=== PATIENT | male | born 1945 | race Caucasian/White ===

== ENCOUNTER → 2021-06-21 13:05 | Outpatient (POV) | payer SELFPAY | PROVIDERS: Visit Provider Audiologist | DX: Z00.00 Encounter for general adult medical examination without abnormal findings (principal) ==

== ENCOUNTER → 2021-07-02 15:48 | Outpatient (CLI) | payer MEDICARE, BC, SELFPAY ==
--- NOTE | 2021-07-02 15:54 | XR_ITS ---
PROCEDURE: XR KUB CLINICAL INDICATION: back pain COMPARISON: No exams were available for comparison FINDINGS: The report delayed waiting on a repeat exam with less the abdomen to cover the entire abdomen. As of this date that exam is not been performed. There are faint flecks of hyperdensity noted in the left upper quadrant and pelvic region and could be due to ingested material. At least 3 of these overlie the left kidney. Therefore, small stones cannot be excluded. There are degenerative changes of the thoracic spine. A suture line is present to the right L3 and L4. No definite ureteral calculi. IMPRESSION: Probable artifact overlying the left kidney versus small stones otherwise negative. Dictated by: Jerry Downey MD 07/15/2021 10:26 Jerry Downey MD in [place] 07/15/2021 10:26
== END ==
PROVIDERS: PCP Family Medicine; Visit Provider Urology
DX: M54.9 Dorsalgia, unspecified (principal)
CPT/HCPCS: 74018

== ENCOUNTER → 2021-07-13 09:42 | Outpatient (CLI) | payer MEDICARE, BC, SELFPAY ==
--- NOTE | 2021-07-13 09:43 | CA_ITS ---
APPROVED REPORT EXAM: Comprehensive 2D, Doppler, and color-flow Echocardiogram Sandwich Board Carrier: Wendy Ragland RDCS Ht: 5 ft 10 in Wt: 204lbs BSA: 2.10 BP: 117/72 mmHg Indications: MV REPAIR,AF,HTN,HLP,CHRONIC CHF,DEFINITY TO R/O THROMBUS 2D Dimensions LVOT 2.40 cm (M/F) 1.5-2.5 LA Volume 169.60 mL LA Volume Index 80.76 mL/m2 (M/F) 16-34 M-Mode Dimensions RVDd 2.03 cm (0.9-2.6) LA Diam 7.00 cm (1.9-4.0) LVDd 5.49 cm (3.5-5.7) Ao Diam 3.95 cm (2.0-3.7) LVDs 4.19 cm (3.5-5.7) IVSd 0.69 cm (0.6-1.1) PWd 0.61 cm (0.6-1.1) EF (Teich) 46.80% FS 23.70% EDV (Teich) 146.80 mL TAPSE 2.34 (<1.7) ESV (Teich) 78.10 mL Tricuspid Valve TR P. Velocity 244.00 cm/s RAP Estimate 10.00 mmHg RVSP 33.80 mmHg Left Ventricle Left atrium is markedly enlarged, left ventricle is normal size, mild concentric left ventricular hypertrophy, visually estimated ejection fraction 50% with no regional wall motion abnormality, diastolic parameters are inconclusive, there is no left ventricular thrombus seen, Definity contrast was utilized to delineate the endocardial surfaces. Right Ventricle Right atrium and right ventricle are qualitatively mildly enlarged with normal contractility. Aortic Valve Aortic valve is minimally thickened and fibrosed, there is no aortic stenosis, there is trace aortic insufficiency. Mitral Valve Status post mitral valve repair, mitral valve leaflets are minimally thickened, there is no mitral inflow obstruction, there is moderate to severe mitral regurgitation. Tricuspid Valve Tricuspid valve leaflets are minimally thickened, there is mild tricuspid regurgitation, calculated right ventricular systolic pressure is 33 mmHg. Pulmonic Valve Pulmonic valve is poorly visualized. Great Vessels Aortic root is normal size. Inferior vena cava is poorly visualized. Pericardium No significant pericardial effusion noted. Conclusion 1. Markedly enlarged left atrium, normal left ventricular size, mild concentric left ventricular hypertrophy, visually estimated ejection fraction 50%, there is no regional wall motion abnormality, there is no left ventricular thrombus seen. Diastolic parameters are inconclusive. 2. Status post mitral valve repair without significant mitral inflow obstruction, there is moderate to severe mitral regurgitation. 3. Mild tricuspid regurgitation, calculated right ventricular systolic pressure is 33 mmHg. 4. No significant pericardial effusion noted. 5. Inferior vena cava is poorly visualized. Electronically signed by : Omar Virk MD 07/13/2021 12:59:45
--- NOTE | 2021-07-13 09:43 | CA_ITS ---
APPROVED REPORT Improvement Specialist: Payal Gil RVT Laterality: Bilateral Study Quality: Good Indications: ANEUDY Risk Factors Hypertension: Hyperlipidemia Doppler Spectral Velocity Analysis ECA (R) 78.10/11.80 cm/s ECA (L) 149.70/23.50 cm/s dICA (R) 78.10/33.10 cm/s dICA (L) 58.80/28.90 cm/s Christiano (R) 83.40/39.60 cm/s Christiano (L) 67.40/28.90 cm/s pICA (R) 85.50/36.40 cm/s pICA (L) 42.80/24.60 cm/s dCCA (R) 115.50/22.50 cm/s dCCA (L) 67.40/24.60 cm/s pCCA (R) 80.20/18.20 cm/s pCCA (L) 78.10/23.50 cm/s Vert (R) 43.80/21.40 cm/s Vert (L) 32.10/13.90 cm/s ICA/CCA 0.74 ICA/CCA 1.00 Findings Study suggests less than 20% stenosis of the right internal cartoid artery. Study suggests less than 20% stenosis of the left internal cartoid artery. Antegrade flow seen bilateral vertebral arteries. Conclusion Study suggests less than 20% stenosis of the right internal cartoid artery. Study suggests less than 20% stenosis of the left internal cartoid artery. Antegrade flow seen bilateral vertebral arteries. Electronically signed by : Jerry Downey MD 07/13/2021 15:45:53
[2021-07-13 12:01] LABS: NT Pro Brain Natriuretic Pep. 520 pg/mL (0-125)
== END ==
PROVIDERS: PCP Family Medicine; Visit Provider Internal Medicine Cardiovascular Disease
DX: E78.5 Hyperlipidemia, unspecified (principal); I48.20 Chronic atrial fibrillation, unspecified; I50.9 Heart failure, unspecified; R06.83 Snoring; R09.89 Other specified symptoms and signs involving the circulatory and respiratory systems; R40.0 Somnolence; R53.83 Other fatigue; R60.0 Localized edema; Z86.79 Personal history of other diseases of the circulatory system; Z98.890 Other specified postprocedural states; R06.02 Shortness of breath; I11.0 Hypertensive heart disease with heart failure
CPT/HCPCS: 36415; 83880; 93306; 93880; Q9957

== ENCOUNTER → 2021-08-02 11:11 | Outpatient (CLI) | payer MEDICARE, BC, SELFPAY ==
[2021-08-02 12:37] LABS: Anion Gap 12.2 mEq/L (5-15); Blood Urea Nitrogen 33 mg/dl (9-20); Calcium 9.6 mg/dl (8.4-10.2); Carbon Dioxide 30 mmol/L (22.0-30.0); Chloride 103 mmol/L (98-107); Estimated Glomerular Filt Rate 59 ml/min (>60); GFR (African American) 72 ML/MIN (>60); Glucose 111 mg/dl (74-100); Potassium 5.2 mmoL/L (3.5-5.1); Sodium 140 mmol/L (136-145)
== END ==
PROVIDERS: Visit Provider Internal Medicine Cardiovascular Disease
DX: E78.5 Hyperlipidemia, unspecified (principal); I10 Essential (primary) hypertension; I48.20 Chronic atrial fibrillation, unspecified; I50.9 Heart failure, unspecified; R06.83 Snoring; R09.89 Other specified symptoms and signs involving the circulatory and respiratory systems; R40.0 Somnolence; R53.83 Other fatigue; R60.0 Localized edema; Z86.79 Personal history of other diseases of the circulatory system; Z98.890 Other specified postprocedural states
CPT/HCPCS: 36415; 80048

== ENCOUNTER → 2021-08-09 10:11 | Outpatient (CLI) | payer MEDICARE, BC, SELFPAY ==
[2021-08-09 12:37] LABS: Chloride 102 mmol/L (98-107); Sodium 140 mmol/L (136-145)
[2021-08-09 12:40] LABS: Blood Urea Nitrogen 22 mg/dl (9-20); Estimated Glomerular Filt Rate 54 ml/min (>60); GFR (African American) 65 ML/MIN (>60)
[2021-08-09 12:41] LABS: Calcium 9.3 mg/dl (8.4-10.2); Carbon Dioxide 31 mmol/L (22.0-30.0); Glucose 110 mg/dl (74-100)
== END ==
PROVIDERS: Physician Assistant; Visit Provider Internal Medicine Cardiovascular Disease
DX: E78.5 Hyperlipidemia, unspecified (principal); G47.9 Sleep disorder, unspecified; I10 Essential (primary) hypertension; I34.0 Nonrheumatic mitral (valve) insufficiency; I48.20 Chronic atrial fibrillation, unspecified; I50.9 Heart failure, unspecified; R06.83 Snoring; R09.89 Other specified symptoms and signs involving the circulatory and respiratory systems; R40.0 Somnolence; R60.0 Localized edema; R94.31 Abnormal electrocardiogram [ECG] [EKG]; Z86.79 Personal history of other diseases of the circulatory system; Z98.890 Other specified postprocedural states
CPT/HCPCS: 36415; 80048

== ENCOUNTER → 2021-08-21 13:12 | Outpatient (CLI) | payer MEDICARE, BC, SELFPAY | PROVIDERS: PCP Family Medicine; Visit Provider Internal Medicine Cardiovascular Disease | DX: G47.30 Sleep apnea, unspecified (principal); R06.83 Snoring; R53.83 Other fatigue; R40.0 Somnolence | CPT/HCPCS: G0399 ==

== ENCOUNTER → 2022-05-31 11:45 | Outpatient (CLI) | payer MEDICARE, BC, SELFPAY ==
[2022-05-31 16:46] LABS: NT Pro Brain Natriuretic Pep. 481 pg/mL (0-450)
[2022-05-31 16:54] LABS: Chloride 102 mmol/L (98-107); Sodium 141 mmol/L (136-145)
[2022-05-31 16:55] LABS: Potassium 4.6 mmoL/L (3.5-5.1)
[2022-05-31 16:57] LABS: Blood Urea Nitrogen 25 mg/dl (9-20); Estimated Glomerular Filt Rate 49 ml/min (>60); GFR (African American) 60 ML/MIN (>60)
[2022-05-31 16:58] LABS: Anion Gap 10.6 mEq/L (5-15); Calcium 10.2 mg/dl (8.4-10.2); Carbon Dioxide 33 mmol/L (22.0-30.0); Glucose 105 mg/dl (74-100)
== END ==
PROVIDERS: PCP Family Medicine; Visit Provider Internal Medicine Cardiovascular Disease
DX: E78.2 Mixed hyperlipidemia (principal); G47.33 Obstructive sleep apnea (adult) (pediatric); I34.0 Nonrheumatic mitral (valve) insufficiency; I48.20 Chronic atrial fibrillation, unspecified; I50.9 Heart failure, unspecified; R60.9 Edema, unspecified; Z98.890 Other specified postprocedural states; I11.0 Hypertensive heart disease with heart failure
CPT/HCPCS: 36415; 80048; 83880

== ENCOUNTER → 2022-06-14 14:15 | Outpatient (CLI) | payer MEDICARE, BC, SELFPAY ==
--- NOTE | 2022-06-14 14:21 | CA_ITS ---
APPROVED REPORT EXAM: Comprehensive 2D, Doppler, and color-flow Echocardiogram Production Technologist: Candida Malhotra CRT Ht: 5 ft 10 in Wt: 216lbs BSA: 2.16 BP: 124/80 mmHg Indications: Congestive Heart Failure, Shortness of Breath, Atrial Fibrillation, Diabetes, Peripheral Edema, Hyperlipidemia, Hypertension/HDD, Mitral Valve Ring 2D Dimensions LVOT 2.03 cm (M/F) 1.5-2.5 LA Volume 159.20 mL LA Volume Index 73.70 mL/m2 (M/F) 16-34 M-Mode Dimensions RVDd 2.90 cm (0.9-2.6) LA Diam 6.13 cm (1.9-4.0) LVDd 4.15 cm (3.5-5.7) Ao Diam 4.68 cm (2.0-3.7) LVDs 2.97 cm (3.5-5.7) IVSd 1.32 cm (0.6-1.1) PWd 0.89 cm (0.6-1.1) EF (Teich) 55.20% FS 28.40% EDV (Teich) 76.40 mL TAPSE 1.82 (<1.7) ESV (Teich) 34.20 mL LV Diastology E Decel Time 217.00 (160-240 msec) E/A Ratio 4.78 MED A' 4.20 cm/s LAT E' 11.10 (<10 cm/sec) LAT A' 4.10 cm/s E/LAT E' Ratio 12.05 (>14) Aortic Valve AO Peak GR. 5.30 mmHg AO VTI 27.86 (18-25 cm) Mitral Valve MV E Max Ambrose. 134.00 (40-130 cm/s) MV A Velocity 28.00 (40-130 cm/s) E/A Ratio 4.78 MV Decel. Time 217.00 (160-240 ms) MV PHT 63.00 ms Pulmonary Valve PV Peak Velocity 135.00 (50-150 cm/s) Tricuspid Valve TR P. Velocity 278.00 cm/s RAP Estimate 10.00 mmHg RVSP 40.90 mmHg Left Ventricle Left atrium is markedly enlarged, left ventricle is normal size mild concentric left ventricular hypertrophy, estimated ejection fraction 50% with no regional wall motion abnormality, diastolic parameters are inconclusive. Right Ventricle Right atrium and right ventricle are mildly enlarged with normal contractility. Aortic Valve Aortic valve is thickened and calcified without aortic stenosis or aortic insufficiency. Mitral Valve Mitral valve has mitral annular ring, mitral inflow velocity is not indicated for significant mitral inflow obstruction, there is moderate mitral regurgitation. Tricuspid Valve Tricuspid valve is grossly normal, there is mild tricuspid regurgitation, tricuspid regurgitation jet velocity is inadequate for calculation of the right ventricular systolic pressure. Pulmonic Valve Pulmonic valve is poorly visualized. Great Vessels Aortic root is normal size. Inferior vena cava is poorly visualized. Pericardium No significant pericardial effusion noted. Conclusion 1. Markedly enlarged left atrium, normal left ventricular size, mild concentric left ventricular hypertrophy, estimated ejection fraction 50% with no regional wall motion abnormality, diastolic parameters are inconclusive. 2. Status post mitral valve ring repair, there is no significant mitral inflow obstruction, there is moderate mitral regurgitation. 3. Mild tricuspid regurgitation. 4. Mildly enlarged right atrium and right ventricle with normal contractility. 5. No significant pericardial effusion noted. 6. Inferior vena cava is poorly visualized. Electronically signed by : Omar Virk MD 06/16/2022 08:24:47
== END ==
PROVIDERS: PCP Family Medicine; Visit Provider Internal Medicine Cardiovascular Disease
DX: E78.2 Mixed hyperlipidemia (principal); G47.33 Obstructive sleep apnea (adult) (pediatric); I10 Essential (primary) hypertension; I34.0 Nonrheumatic mitral (valve) insufficiency; I48.20 Chronic atrial fibrillation, unspecified; R60.9 Edema, unspecified; Z98.890 Other specified postprocedural states; I50.89 Other heart failure
CPT/HCPCS: 93306

== ENCOUNTER → 2022-06-25 08:52 | Outpatient (CLI) | payer MEDICARE, BC, SELFPAY ==
[2022-06-25 09:35] LABS: Basophils # 0.1 K/mm3 (0-0.2); Basophils % 0.7 % (0.1-2.0); Eosinophils # 0.2 K/mm3 (0.0-0.4); Eosinophils % 3.1 % (0.1-12.0); Hematocrit 46.8 % (42.0-52.0); Lymphocytes # 0.5 K/mm3 (0.7-4.5); Lymphocytes % 7.9 % (10-50); Mean Corpuscular Hemoglobin 31.6 pg (27.0-31.2); Mean Corpuscular Volume 98.4 fl (80-94); Mean Platelet Volume 8.8 fl (7.4-10.4); Monocytes # 0.6 K/mm3 (0.1-1.0); Monocytes % 8.2 % (1.7-9.3); Neutrophils # 5.4 K/mm3 (1.8-7.8); Neutrophils % 80.2 % (37.0-80.0); Platelet Count 120 K/mm3 (142-424); Red Blood Count 4.76 M/mm3 (4.60-6.20); Red Cell Distribution Width 14.2 % (11.5-17.5); White Blood Count 6.7 K/mm3 (4.8-10.8)
[2022-06-25 09:49] LABS: Chloride 95 mmol/L (98-107); Potassium 3.8 mmoL/L (3.5-5.1); Sodium 136 mmol/L (136-145)
[2022-06-25 09:52] LABS: Blood Urea Nitrogen 29 mg/dl (9-20); Estimated Glomerular Filt Rate 42 ml/min (>60); GFR (African American) 51 ML/MIN (>60)
[2022-06-25 09:53] LABS: Anion Gap 14.8 mEq/L (5-15); Carbon Dioxide 30 mmol/L (22.0-30.0); Glucose 130 mg/dl (74-100)
== END ==
PROVIDERS: PCP Family Medicine; Visit Provider Internal Medicine Cardiovascular Disease
DX: E78.2 Mixed hyperlipidemia (principal); I10 Essential (primary) hypertension; I34.0 Nonrheumatic mitral (valve) insufficiency; I48.20 Chronic atrial fibrillation, unspecified; R60.0 Localized edema; R60.9 Edema, unspecified; Z86.79 Personal history of other diseases of the circulatory system; Z98.890 Other specified postprocedural states; Z01.812 Encounter for preprocedural laboratory examination; Z20.822 Contact with and (suspected) exposure to COVID-19
CPT/HCPCS: 36415; 80048; 85025; C9803; U0003; U0005

== ENCOUNTER → 2022-06-26 08:45 | Day surgery (SDC) | payer MEDICARE, BC, SELFPAY ==
[2022-06-26 08:49] VITALS: BMI 30.7
[2022-06-26 09:19] LABS: INR 2.71 (0.9-1.1); Prothrombin Time 27.7 seconds (10.1-12.5)
== END ==
PROVIDERS: PCP Family Medicine; Visit Provider Internal Medicine
DX: Z53.9 Procedure and treatment not carried out, unspecified reason (principal); I27.20 Pulmonary hypertension, unspecified; I27.21 Secondary pulmonary arterial hypertension; E11.9 Type 2 diabetes mellitus without complications; I10 Essential (primary) hypertension; I34.0 Nonrheumatic mitral (valve) insufficiency; I48.20 Chronic atrial fibrillation, unspecified; Z79.01 Long term (current) use of anticoagulants; Z79.84 Long term (current) use of oral hypoglycemic drugs
CPT/HCPCS: 36415; 85610

== ENCOUNTER 2022-06-28 03:16 | Emergency (ER) | payer MEDICARE, BC, SELFPAY ==
[2022-06-28] VITALS (7 sets, daily range): BP systolic 112–127; BP diastolic 73–84; PULSE 78–103; RESP 16–19; TEMP 36.6–37.1; O2SAT 95–98; BMI 30.1
--- NOTE | 2022-06-28 03:24 | ECG_ITS ---
APPROVED REPORT Exam: Resting ECG HR:100 bpm ECG Measurements Heart Rate 100 AXES QRSd 144 QRS -62 QT 366 T -16 QTc 423 Conclusion ATRIAL FIBRILLATION WITH RAPID VENTRICULAR RESPONSE WITH ABERRANT CONDUCTION OR VENTRICULAR PREMATURE COMPLEXES LEFT AXIS DEVIATION [QRS AXIS < -30] RIGHT BUNDLE BRANCH BLOCK [120+ ms QRS DURATION, UPRIGHT V1, 40+ ms S IN I/aVL/V4/V5/V6] ABNORMAL ECG UNCONFIRMED REPORT Electronically signed by : Haroon Nair MD 06/28/2022 13:50:24
--- NOTE | 2022-06-28 03:35 | CT_ITS ---
PROCEDURE INFORMATION: Exam: CT Head Without Contrast Exam date and time: 06/28/2022 3:38 AM Age: 76 years old Clinical indication: Pain; Headache; Additional info: Headache x 3 days, overall not feeling well TECHNIQUE: Imaging protocol: Computed tomography of the head without contrast. Radiation optimization: All CT scans at this facility use at least one of these dose optimization techniques: automated exposure control; mA and/or kV adjustment per patient size (includes targeted exams where dose is matched to clinical indication); or iterative reconstruction. COMPARISON: US CA CAROTID DUPLEX BI 07/13/2021 10:37 AM FINDINGS: Brain: There is layering subdural blood on the left, overlying the left convexity best seen at the left frontal lobe measuring approximately 3 mm in thickness. Age related atrophic changes in the brain. There is moderate diffuse heterogeneity of the white matter attenuation, consistent with chronic white matter microvascular ischemic changes. No mass effect or midline shift. No evidence of acute territorial ischemia. Cerebral ventricles: The ventricular system demonstrates mild diffuse compensatory enlargement. Paranasal sinuses: Mucosal thickening in the right maxillary, ethmoid and frontal sinuses. Mastoid air cells: No significant mastoid effusion. Bones/joints: No acute fracture. Soft tissues: No acute findings. IMPRESSION: 1. Subdural hematoma overlying the left convexity measuring about 3 mm in thickness without significant mass effect or midline shift. 2. Other chronic changes as described.
--- NOTE | 2022-06-28 03:37 | XR_ITS ---
PROCEDURE INFORMATION: Exam: XR Chest Exam date and time: 06/28/2022 3:38 AM Age: 76 years old Clinical indication: Other: Headache; Prior surgery; Additional info: General feeling of unwell, headache TECHNIQUE: Imaging protocol: Radiologic exam of the chest. Views: 2 views. COMPARISON: CR XR KUB 07/02/2021 3:59 PM FINDINGS: Lungs: No focal consolidation or airspace disease Pleural spaces: No pleural effusion. No pneumothorax. Heart/Mediastinum: Status post sternotomy with postsurgical changes related to cardiac valve repair. Vasculature: Tortuous aorta with possible ectasia. Bones/joints: No acute osseous findings. IMPRESSION: 1. No acute cardiopulmonary findings. 2. Other chronic changes as described.
[2022-06-28 03:45] LABS: Coronavirus 19, PCR Not Detected (NotDetected); Influenza A, PCR Not Detected (NotDetected); Influenza B, PCR Not Detected (NotDetected)
[2022-06-28 03:52] LABS: Basophils # 0.1 K/mm3 (0-0.2); Basophils % 1.3 % (0.1-2.0); Eosinophils # 0.3 K/mm3 (0.0-0.4); Eosinophils % 2.6 % (0.1-12.0); Hematocrit 45.4 % (42.0-52.0); Hemoglobin 15.5 g/dL (14.1-18.0); Lymphocytes # 0.9 K/mm3 (0.7-4.5); Lymphocytes % 9.3 % (10-50); Mean Corpuscular HGB Conc 34.2 g/dL (31.8-35.4); Mean Corpuscular Hemoglobin 32.7 pg (27.0-31.2); Mean Corpuscular Volume 95.6 fl (80-94); Mean Platelet Volume 12.6 fl (7.4-10.4); Monocytes # 0.5 K/mm3 (0.1-1.0); Monocytes % 5.6 % (1.7-9.3); Neutrophils # 7.7 K/mm3 (1.8-7.8); Neutrophils % 81.3 % (37.0-80.0); Platelet Count 199 K/mm3 (142-424); Red Blood Count 4.75 M/mm3 (4.60-6.20); White Blood Count 9.5 K/mm3 (4.8-10.8)
[2022-06-28 03:56] LABS: Alanine Aminotransferase 60 U/L (12-78); Albumin Level 3.8 g/dl (3.5-5.0); Albumin/Globulin Ratio 1.2 (1.1-1.8); Alkaline Phosphatase 98 U/L (38-126); Anion Gap 12.5 mEq/L (5-15); Aspartate Amino Transferase 48 U/L (17-59); Bilirubin,Total 1.2 mg/dl (0.2-1.3); Blood Urea Nitrogen 27 mg/dl (9-20); Carbon Dioxide 33 mmol/L (22.0-30.0); Chloride 93 mmol/L (98-107); Creatinine Clearance Estimated 72 mL/min (50-200); Estimated Glomerular Filt Rate 59 ml/min (>60); GFR (African American) 71 ML/MIN (>60); Globulin 3.3 g/dL (1.3-3.2); Glucose 131 mg/dl (74-100); Magnesium 1.8 mg/dl (1.6-2.3); Phosphorous 2.6 mg/dl (2.5-4.5); Potassium 3.5 mmoL/L (3.5-5.1); Sodium 135 mmol/L (136-145); Total Protein,Serum 7.1 g/dl (6.3-8.2)
[2022-06-28 04:02] LABS: C-Reactive Protein 119.4 mg/L (0-4)
[2022-06-28 04:08] LABS: NT Pro Brain Natriuretic Pep. 1190 pg/mL (0-450)
--- NOTE | 2022-06-28 04:12 | HMH.EDHA ---
Discharge Plan Disposition Patient Disposition: Home, Self-Care Chief Complaint: Headache Prescriptions Prescriptions: No Action metformin 500 mg tablet 500 mg PO DAILY pantoprazole 40 mg tablet,delayed release (DR/EC) 40 mg PO DAILY simvastatin 40 mg tablet 40 mg PO DAILY levalbuterol tartrate 45 mcg/actuation HFA aerosol inhaler 1 puff INHALATION Q4-6H PRN (Reason: copd) cholecalciferol (vitamin D3) 125 mcg (5,000 unit) capsule 125 mcg PO DAILY calcium carbonate [Calcium 600] 600 mg calcium (1,500 mg) tablet 600 mg PO DAILY warfarin 7.5 mg tablet 7.5 mg PO .COMPLEX Rx Instructions: 7.5 mg PO we -d and sat; Q w&s warfarin 5 mg tablet 5 mg PO .COMPLEX Rx Instructions: 5 mg PO mon,tues,thurs,fri,sun; qMTTFS nitroglycerin 0.4 mg tablet, sublingual 0.4 mg SUBLINGUAL ONCE PRN (Reason: Chest Pain) multivitamin Tablet 1 tab PO DAILY magnesium 250 mg tablet 250 mg PO DAILY furosemide 40 mg tablet 40 mg PO DIRECTED metoprolol succinate 50 mg tablet extended release 24 hr 50 mg PO HS Rx Instructions: Take 1 tablet by mouth once daily spironolactone 25 mg tablet 25 mg PO Q OTHER DAY Referrals Follow up/Referrals: Eddie Pulido MD [Primary Care Provider] - See instructions Phu Deluna MD [Staff Physician] - See instructions Clinical Impressions Clinical Impression: Acute subdural hematoma, History of mitral valve repair, CHF (congestive heart failure), Chronic a-fib, Prolonged INR, RBBB (right bundle branch block with left anterior fascicular block) Instructions Patient Instructions: DI for Subdural Hematoma Discharge ED Provider: Ashvin Christiansen Headache HPI General Chief Complaint: Headache Stated Complaint: headache, dehydrated Time Seen by Provider: 06/28/22 04:12 Mode of Arrival: Family Vehicle Source of Information: Patient, Spouse and Medical Record Limitations: No Limitations Description of Symptoms (Recalled from ER Triage Doc. by RN): 76 yo male presents with chief complaint of headache allover x 3 days . is very aggressive in answering questions asked of patient. It is reported between the two of them: patient has had poor appetite, and they think he is dehydrated therefore causing his headache. Remains afebrile both at home and here. PMH: DM, multiple heart cath's w/o stents, angioplasty, mitral valve repair, endocarditis,alvarado's esophagus,copd,edema. PSH: appendix, small intestine 5-6 in removed (unable to provide etiology). No recent exposure to illness. History of Present Illness HPI Narrative: pt with hagan mostly on lt w/o fever or rash and no trauma - has hx of coumadin use but has not taken any since friday - has planned ht cath on friday - also has hx of barretts esophagus with poor appetite - no abd pain - no melena Complaint: headache Onset (ago): day(s) Onset description: gradual Location: left and diffuse Severity: moderate Quality: sharp and different than previous headaches Context: occurred at rest Associated symptoms: none Other symptoms: malaise Treatments prior to arrival: none Related Data Home Medications Medication Instructions Recorded Confirmed calcium carbonate 600 mg calcium 600 mg PO DAILY supplemenmt 07/02/21 06/28/22 (1,500 mg) tablet (Calcium) cholecalciferol (vitamin D3) 125 125 mcg PO DAILY Supplement 07/02/21 06/28/22 mcg (5,000 unit) capsule levalbuterol tartrate 45 1 puff inhalation Q4-6H PRN copd 07/02/21 06/28/22 mcg/actuation aerosol inhaler metformin 500 mg tablet 500 mg PO DAILY Diabetes 07/02/21 06/28/22 pantoprazole 40 mg tablet,delayed 40 mg PO DAILY GERD 07/02/21 06/28/22 release simvastatin 40 mg tablet 40 mg PO DAILY Cholesterol 07/02/21 06/28/22 nitroglycerin 0.4 mg sublingual 0.4 mg sublingual ONCE PRN Chest 08/02/21 06/28/22 tablet Pain magnesium 250 mg tablet 250 mg PO DAILY Supplement 09/12/21 06/28/22 multivi
[2022-06-28 04:13] LABS: Troponin I < 0.01 ng/ml (0.00-0.034)
[2022-06-28 04:16] LABS: INR 2.93 (0.9-1.1); Prothrombin Time 29.8 seconds (10.1-12.5)
[2022-06-28 04:26] LABS: Erythrocyte Sedimentation Rate 20 mm/hr (0-20)
[2022-06-28 04:27] LABS: Lipase 140 U/L (23-300)
[2022-06-28 04:53] LABS: Appearance,Urine CLEAR (Clear); Bilirubin,Urine Negative (Negative); Blood, Urine TRACE-I (Negative); Color,Urine YELLOW (Yellow); Glucose,Urine (UA) Negative (Negative); Ketones,Urine Negative (Negative); Leukocyte Esterase,Urine Negative (Negative); Microscopic, Urine URINE MICROSCOPIC (MICROSCOPIC); Nitrate,Urine Negative (Negative); Protein,Urine 1+ (Negative); Specific Gravity, Urine 1.015 (1.005-1.030); Urobilinogen,Urine 0.2 EU/dl (0.2)
[2022-06-28 05:04] LABS: Bacteria,Urine Trace /lpf; Mucus,Urine 1+ /lpf; WBC,Urine Occasional #/hpf (0-3)
--- NOTE | 2022-06-28 06:14 | PC.NURSE ---
Speaking to [facility] regarding potential transfer from [facility] to [facility].
--- NOTE | 2022-06-28 06:24 | PC.NURSE ---
ER speaking with Dr Gonzalez at at this time
--- NOTE | 2022-06-28 06:48 | PC.NURSE ---
Paging cardiology again.
== END 2022-06-28 07:55 | disposition home or self-care (01) ==
PROVIDERS: Emergency Provider Emergency Medicine; PCP Family Medicine
DX: I62.01 Nontraumatic acute subdural hemorrhage (principal); R07.9 Chest pain, unspecified; R94.31 Abnormal electrocardiogram [ECG] [EKG]; E86.0 Dehydration; R51.9 Headache, unspecified; Z20.822 Contact with and (suspected) exposure to COVID-19; I50.9 Heart failure, unspecified; I25.10 Atherosclerotic heart disease of native coronary artery without angina pectoris; I48.20 Chronic atrial fibrillation, unspecified; I45.2 Bifascicular block; I27.20 Pulmonary hypertension, unspecified; I34.0 Nonrheumatic mitral (valve) insufficiency; E78.5 Hyperlipidemia, unspecified; E11.9 Type 2 diabetes mellitus without complications; N40.0 Benign prostatic hyperplasia without lower urinary tract symptoms; K22.70 Barrett's esophagus without dysplasia; Z79.01 Long term (current) use of anticoagulants; Z79.84 Long term (current) use of oral hypoglycemic drugs; Z79.899 Other long term (current) drug therapy; Z95.5 Presence of coronary angioplasty implant and graft; Z82.49 Family history of ischemic heart disease and other diseases of the circulatory system; Z83.3 Family history of diabetes mellitus
CPT/HCPCS: 70450; 71046; 80053; 81001; 83690; 83735; 83880; 84100; 84484; 85025; 85610; 85651; 86140; 93005; 96361; 96374; 99285; C9803; U0003; U0005

== ENCOUNTER 2022-07-01 08:49 | Day surgery (SDC) | payer MEDICARE, BC, SELFPAY ==
[2022-07-01] VITALS (12 sets, daily range): BP systolic 97–128; BP diastolic 62–76; PULSE 81–97; RESP 18–20; O2SAT 92–98; BMI 30.7
--- NOTE | 2022-07-01 07:16 | IR_ITS ---
APPROVED REPORT Patient Location: Outpatient PROCEDURES Right internal jugular vein access Right heart catheterization INDICATION Congestive heart failure, Pulmonary hypertension Informed consent was obtained prior to the procedure. COMPLICATIONS None Estimated Blood Loss: Less than 10 mls TECHNIQUE One percent lidocaine was used to anesthetize the right anterior aspect of the neck. A optical glass inspector needle was used to identify the right internal jugular vein. Following this a larger cannulation needle was used to cannulate the right internal jugular vein and a wire was passed into the vein. Prior to the 7 Thai sheath being inserted the wire was confirmed under fluoroscopic guidance to be in the inferior vena cava. A 7 Thai sheath was introduced and a Vanleer-Eli catheter was floated using hemodynamic waveforms in the pulmonary artery, right ventricle , and right atrium. Saturations were obtained in the pulmonary artery and the right atrium. At the end of the procedure the patient was transferred to the postop holding area in stable condition for sheath removal. ANGIOGRAPHIC RESULTS Right atrial pressure 3 mmHg Pulmonary artery pressure 20/10 mmHg Pulmonary occlusion pressure 8 mmHg Right atrial saturation 71% Pulmonary saturation 72% Aortic saturation 99% Hemoglobin 15.0 Cardiac output 5 L/min IMPRESSION Normal intracardiac pulmonary filling pressures PLAN 1. Continue medical management Electronically signed by : Phu Deluna MD 07/01/2022 11:15:39
[2022-07-01 10:00] LABS: INR 1.29 (0.9-1.1); Prothrombin Time 13.7 seconds (10.1-12.5)
[2022-07-01 12:49] LABS: CATHL Arterial O2 SAT 73 % (90-100); CATHL Venous O2 SAT 72 % (75-80)
== END 2022-07-01 13:29 | disposition home or self-care (01) ==
PROVIDERS: PCP Family Medicine; Visit Provider Internal Medicine
DX: E78.2 Mixed hyperlipidemia (principal); I11.0 Hypertensive heart disease with heart failure; I27.21 Secondary pulmonary arterial hypertension; I34.0 Nonrheumatic mitral (valve) insufficiency; I48.20 Chronic atrial fibrillation, unspecified; I50.32 Chronic diastolic (congestive) heart failure; Z86.79 Personal history of other diseases of the circulatory system; E11.9 Type 2 diabetes mellitus without complications; Z79.84 Long term (current) use of oral hypoglycemic drugs; Z79.01 Long term (current) use of anticoagulants; I65.23 Occlusion and stenosis of bilateral carotid arteries
CPT/HCPCS: 36415; 82810; 85610; 93451; 99152; C1894; J1644

== ENCOUNTER → 2022-07-17 14:09 | Outpatient (CLI) | payer MEDICARE, BC, SELFPAY ==
--- NOTE | 2022-07-17 14:09 | CT_ITS ---
FINAL REPORT TECHNIQUE: Axial imaging of the chest was obtained without contrast. Reformatted images were also obtained and reviewed.This study was performed with techniques to keep radiation doses as low as reasonably achievable, (ALARA). Individualized dose reduction technique using automated exposure control or adjustment of mA and/or kV according to the patient's size were employed. CLINICAL HISTORY: dyspnea/hx of mitral valve ring FINDINGS: Patient is status post median sternotomy. There is no axillary adenopathy. There is no hilar or mediastinal mass or adenopathy. There is left atrial enlargement. There is no pericardial or pleural effusion. Bilateral pleural calcifications are seen. There is mild atelectasis or scarring at the lung bases. No suspicious infiltrate or nodule is identified on lung window images. Limited imaging of the upper abdomen demonstrates cholelithiasis and bilateral adrenal nodules which are nonspecific but could represent adenomas. IMPRESSION: Left atrial enlargement. Mild atelectasis or scarring at the lung bases. Cholelithiasis. Bilateral adrenal nodules, nonspecific which could represent adenomas. Reviewed, Interpreted and Dictated by Pravin Clancy III, MD Transcribed by Shelli Boyle Authenticated and . [facility]
--- NOTE | 2022-07-17 15:27 | PC.NURSE ---
PFT completed without incident. Pt gave excellent effort. Xopenex 0.042% given per protocol via [facility]N, Pt tolerated tx well.
== END ==
PROVIDERS: PCP Family Medicine; Visit Provider Physician Assistant
DX: E78.2 Mixed hyperlipidemia (principal); I10 Essential (primary) hypertension; I48.20 Chronic atrial fibrillation, unspecified; R06.00 Dyspnea, unspecified; R60.0 Localized edema; Z86.79 Personal history of other diseases of the circulatory system; Z98.890 Other specified postprocedural states
CPT/HCPCS: 71250; 94060; 94727; 94729

== ENCOUNTER → 2022-07-25 09:59 | Outpatient (CLI) | payer MEDICARE, BC, SELFPAY ==
[2022-07-25 11:26] LABS: Blood Urea Nitrogen 18 mg/dl (9-20); Estimated Glomerular Filt Rate 54 ml/min (>60); GFR (African American) 65 ML/MIN (>60)
== END ==
PROVIDERS: PCP Family Medicine; Visit Provider Internal Medicine
DX: R06.00 Dyspnea, unspecified (principal); Z01.812 Encounter for preprocedural laboratory examination
CPT/HCPCS: 36415; 82565; 84520

== ENCOUNTER → 2022-07-26 08:17 | Outpatient (CLI) | payer MEDICARE, BC, SELFPAY ==
--- NOTE | 2022-07-26 08:20 | CT_ITS ---
FINAL REPORT TECHNIQUE: Pre- and postcontrast images of the abdomen were performed by computed tomography. This study was performed with techniques to keep radiation doses as low as reasonably achievable (ALARA). Individualized dose reduction techniques using automated exposure control or adjustment of mA and/or kV according to the patient's size were employed. CLINICAL HISTORY: adrenal nodules FINDINGS: There is mild bibasilar atelectasis or scar. Bilateral pleural calcifications are noted. There are multiple calcified granulomas. The liver is normal in size and attenuation. The spleen is unremarkable. The pancreas is unremarkable. Bilateral adrenal nodules are identified measuring 15 mm on the right and 18 mm on the left. Both show greater than 60% contrast washout at 15 minutes consistent with adenomas. There are bilateral renal cysts. Moderate vascular calcification is identified. There is a 3 mm nonobstructing right renal stone. Small umbilical hernia is identified. IMPRESSION: Bilateral adrenal nodules consistent with adenomas. Nonobstructing right renal stone. Reviewed, Interpreted and Dictated by Pravin Clancy III, MD Transcribed by Guillermina Issa Authenticated and [facility]
== END ==
PROVIDERS: PCP Family Medicine; Visit Provider Physician Assistant
DX: R06.09 Other forms of dyspnea (principal)
CPT/HCPCS: 74170; Q9967

== ENCOUNTER → 2023-05-08 08:40 | Outpatient (CLI) | payer MEDICARE, BC, SELFPAY ==
[2023-05-08 08:53] LABS: Microscopic, Urine URINE MICROSCOPIC (MICROSCOPIC)
[2023-05-08 09:13] LABS: Appearance,Urine CLEAR (Clear); Bilirubin,Urine Negative (Negative); Blood, Urine Negative (Negative); Color,Urine YELLOW (Yellow); Glucose,Urine (UA) Negative (Negative); Ketones,Urine Negative (Negative); Leukocyte Esterase,Urine Negative (Negative); Nitrate,Urine Negative (Negative); Protein,Urine Negative (Negative); Specific Gravity, Urine 1.015 (1.005-1.030); Urobilinogen,Urine 0.2 EU/dl (0.2)
[2023-05-08 09:19] LABS: Basophils % 0.7 % (0.1-2.0); Eosinophils # 0.4 K/mm3 (0.0-0.4); Eosinophils % 6.9 % (0.1-12.0); Hematocrit 41.4 % (42.0-52.0); Hemoglobin 13.4 g/dL (14.1-18.0); Lymphocytes # 1.2 K/mm3 (0.7-4.5); Lymphocytes % 20.7 % (10-50); Mean Corpuscular HGB Conc 32.3 g/dL (31.8-35.4); Mean Corpuscular Hemoglobin 31.1 pg (27.0-31.2); Mean Corpuscular Volume 96.5 fl (80-94); Mean Platelet Volume 8.3 fl (7.4-10.4); Monocytes # 0.6 K/mm3 (0.1-1.0); Monocytes % 9.9 % (1.7-9.3); Neutrophils # 3.6 K/mm3 (1.8-7.8); Neutrophils % 61.9 % (37.0-80.0); Platelet Count 179 K/mm3 (142-424); Red Blood Count 4.29 M/mm3 (4.60-6.20); Red Cell Distribution Width 14.4 % (11.5-17.5); White Blood Count 5.9 K/mm3 (4.8-10.8)
[2023-05-08 09:25] LABS: Squamous Epithelial Cell,Urine Occasional #/hpf (0-5)
[2023-05-08 09:40] LABS: Creatinine,Urine Random 92 mg/dL (Not Estab.)
[2023-05-08 09:45] LABS: Albumin Level 3.8 g/dl (3.5-5.0); Anion Gap 9.6 mEq/L (5-15); Blood Urea Nitrogen 23 mg/dl (9-20); Calcium 9.1 mg/dl (8.4-10.2); Carbon Dioxide 30 mmol/L (22.0-30.0); Chloride 106 mmol/L (98-107); Estimated Glomerular Filt Rate 49 ml/min (>60); GFR (African American) 60 ML/MIN (>60); Glucose 95 mg/dl (74-100); Phosphorous 3.1 mg/dl (2.5-4.5); Potassium 3.6 mmoL/L (3.5-5.1); Sodium 142 mmol/L (136-145)
[2023-05-08 09:57] LABS: Intact Parathyroid Hormone 60.3 pg/mL (7.5-53.5)
[2023-05-08 11:29] LABS: 25-OH Vitamin D, Total > 126 ng/mL (30-100)
== END ==
PROVIDERS: PCP Family Medicine; Visit Provider Internal Medicine Nephrology
DX: N18.31 Chronic kidney disease, stage 3a (principal)
CPT/HCPCS: 36415; 80069; 81001; 82043; 82306; 82570; 83970; 84155; 85025

== ENCOUNTER → 2023-05-12 13:40 | Outpatient (POV) | payer MEDICARE, BC, SELFPAY | PROVIDERS: Visit Provider Internal Medicine Nephrology | DX: Z00.00 Encounter for general adult medical examination without abnormal findings (principal) ==

== ENCOUNTER → 2023-05-21 12:46 | Outpatient (CLI) | payer MEDICARE, BC, SELFPAY ==
--- NOTE | 2023-05-21 | US_ITS ---
FINAL REPORT TECHNIQUE: Ultrasound images of the kidneys and bladder were obtained. CLINICAL HISTORY: STAGE 3 CKD COMPARISON: None FINDINGS: The right kidney measures 9.7 cm in length. The left kidney measures 9.8 cm in length. There is no hydronephrosis. Anechoic areas in the bilateral kidneys measure 3.5 x 2.7 cm on the right and 3.9 cm greatest dimension on the left. IMPRESSION: Bilateral anechoic areas up to 3.9 cm. Reviewed, Interpreted and Dictated by Tom West MD Transcribed by Tiffany Bautista Authenticated and [facility]
== END ==
PROVIDERS: PCP Family Medicine; Visit Provider Internal Medicine Nephrology
DX: N18.30 Chronic kidney disease, stage 3 unspecified (principal)
CPT/HCPCS: 76770

== ENCOUNTER 2023-07-13 15:39 | Emergency (ER) | payer MEDICARE, BC, SELFPAY ==
--- NOTE | 2023-07-13 15:48 | ECG_ITS ---
APPROVED REPORT Exam: Resting ECG HR:102 bpm ECG Measurements Heart Rate 102 AXES QRSd 145 QRS -78 QT 355 T -12 QTc 414 Conclusion ATRIAL FIBRILLATION WITH RAPID VENTRICULAR RESPONSE WITH ABERRANT CONDUCTION OR VENTRICULAR PREMATURE COMPLEXES LEFT AXIS DEVIATION [QRS AXIS < -30] RIGHT BUNDLE BRANCH BLOCK [120+ ms QRS DURATION, UPRIGHT V1, 40+ ms S IN I/aVL/V4/V5/V6] ABNORMAL ECG UNCONFIRMED REPORT Electronically signed by : Haroon Nair MD 07/14/2023 17:23:23
[2023-07-13 15:58] VITALS: BP 145/79; PULSE 75; RESP 18; TEMP 37.1; O2SAT 96; BMI 29.0
[2023-07-13 16:01] VITALS: BP 121/57; PULSE 100; RESP 18; O2SAT 96
--- NOTE | 2023-07-13 16:19 | HMH.EDGENADL ---
Discharge Plan Disposition Patient Disposition: Home, Self-Care Prescriptions Prescriptions: New azithromycin 250 mg tablet 250 mg PO DAILY 4 Days Qty: 4 0RF Rx Instructions: start on day 2 of therapy prednisone 50 mg tablet 50 mg PO DAILY 4 Days Qty: 4 0RF No Action metformin 500 mg tablet 500 mg PO DAILY pantoprazole 40 mg tablet,delayed release (DR/EC) 40 mg PO DAILY simvastatin 40 mg tablet 40 mg PO DAILY levalbuterol tartrate 45 mcg/actuation HFA aerosol inhaler 1 puff INHALATION Q4-6H PRN (Reason: copd) warfarin 7.5 mg tablet 7.5 mg PO .COMPLEX Rx Instructions: 7.5 mg PO we -d and sat; Q w&s warfarin 5 mg tablet 5 mg PO .COMPLEX Rx Instructions: 5 mg PO mon,tu,th,fri,sun; qMTTFS nitroglycerin 0.4 mg tablet, sublingual 0.4 mg SUBLINGUAL ONCE PRN (Reason: Chest Pain) multivitamin Tablet 1 tab PO DAILY magnesium 250 mg tablet 250 mg PO DAILY cetirizine [Zyrtec] 10 mg tablet 10 mg PO DAILY PRN (Reason: Allergy Symptoms) fluticasone propionate 50 mcg/actuation spray,suspension 2 spray intranasal DAILY 90 Days Qty: 16 2RF Rx Instructions: administer into each nostril metoprolol succinate 50 mg tablet extended release 24 hr See Rx Instructions .ROUTE .COMPLEX Qty: 90 1RF Dose Instruction: Take 1 tablet by mouth once daily Rx Instructions: Take 1 tablet by mouth once daily Stiolto Respimat 2.5-2.5 mcg/actuation mist 2 puff inhalation DAILY 90 Days Qty: 4 3RF furosemide 40 mg tablet 40 mg PO DIRECTED Qty: 270 2RF Rx Instructions: Take 2 in morning and 1 in evening. spironolactone 25 mg tablet See Rx Instructions .ROUTE .COMPLEX Qty: 45 2RF Dose Instruction: TAKE 1 TABLET BY MOUTH EVERY OTHER DAY Rx Instructions: TAKE 1 TABLET BY MOUTH EVERY OTHER DAY Referrals Follow up/Referrals: Eddie Pulido MD [Primary Care Provider] - See instructions Activity Restrictions/Add. Instructions Additional Instructions/Restrictions: At this time it was felt you are safe to be discharged home. If new or worsening symptoms please do not hesitate to return the emergency department. If symptoms persist please follow-up with your family doctor as you are able. Please take medications as prescribed. Clinical Impressions Clinical Impression: Acute exacerbation of chronic obstructive pulmonary disease Discharge ED Provider: Devon Bright General Adult HPI General Chief complaint: Weakness Stated complaint: weakness,cough,congested Time Seen by Provider: 07/13/23 15:50 Mode of Arrival: Ambulatory Source of Information: Patient and Spouse Limitations: No Limitations Description of Symptoms (Recalled from ER Triage Doc. by RN): 77 yo M presents to ED with c/o not feeling well . symptoms ongoing for 3-4 days. pt reports productive cough, malaise, weakness. pt reports increased shortness of air. History of Present Illness HPI narrative: Patient is a 77-year-old male with past medical history of [id number] diabetes, COPD not on home oxygen, previous mitral valve repair on warfarin who presents emergency department for evaluation of cough and shortness of breath. Onset was acute, over the last 3 to 4 days. Due to persistent cough and shortness of breath he presents here for continued evaluation. Denies chest pain. There is associated decreased p.o. intake, no vomiting. No other acute complaints at this time. Related Data Home Medications Medication Instructions Recorded Confirmed levalbuterol tartrate 45 1 puff inhalation Q4-6H PRN copd 07/02/21 07/13/23 mcg/actuation aerosol inhaler metformin 500 mg tablet 500 mg PO DAILY Diabetes 07/02/21 07/13/23 pantoprazole 40 mg tablet,delayed 40 mg PO DAILY GERD 07/02/21 07/13/23 release simvastatin 40 mg tablet 40 mg PO DAILY Cholesterol 07/02/21 07/13/23 nitroglycerin 0.4 mg sublingual 0.4 mg sublin
--- NOTE | 2023-07-13 16:24 | XR_ITS ---
PROCEDURE INFORMATION: Exam: XR Chest Exam date and time: 07/13/2023 4:24 PM Age: 77 years old Clinical indication: Cough and shortness of breath and wheezing; Patient HX: Cough, SOB, wheezing, malaise; Additional info: SOB, cough, wheezing TECHNIQUE: Imaging protocol: Radiologic exam of the chest. Views: 2 views. COMPARISON: CT CHEST WO CON 07/17/2022 2:12 PM FINDINGS: Lungs: No evidence of acute airspace consolidation. No pulmonary edema. Pleural spaces: No significant pleural effusion. No pneumothorax. Heart/Mediastinum: Cardiomediastinal silouhette is within normal limits. Stable appearance of mitral valvuloplasty. Bones/joints: No evidence of acute osseous abnormality. IMPRESSION: No acute findings.
[2023-07-13 16:26] LABS: VBG Base Excess -0.1 mmol/L (-2.4-2.3); VBG Oxygen Saturation 91.8 % (50-70); VBG PO2 56.6 mmol/L (28-40); VBG Total CO2 23.9 mmol/L (23-27)
[2023-07-13 16:28] LABS: Basophils % 0.4 % (0.1-2.0); Eosinophils % 0.1 % (0.1-12.0); Hematocrit 43.3 % (42.0-52.0); Hemoglobin 15.4 g/dL (14.1-18.0); Lymphocytes # 0.5 K/mm3 (0.7-4.5); Lymphocytes % 8.7 % (10-50); Mean Corpuscular HGB Conc 35.4 g/dL (31.8-35.4); Mean Corpuscular Volume 93.1 fl (80-94); Mean Platelet Volume 8.6 fl (7.4-10.4); Monocytes # 0.3 K/mm3 (0.1-1.0); Monocytes % 5.9 % (1.7-9.3); Platelet Count 108 K/mm3 (142-424); Red Blood Count 4.65 M/mm3 (4.60-6.20); Red Cell Distribution Width 14.3 % (11.5-17.5); White Blood Count 5.9 K/mm3 (4.8-10.8)
[2023-07-13 16:30] VITALS: BP 109/72; PULSE 99; RESP 9; O2SAT 95
[2023-07-13 16:33] LABS: Alanine Aminotransferase 50 U/L (12-78); Albumin Level 4.3 g/dl (3.5-5.0); Albumin/Globulin Ratio 1.3 (1.1-1.8); Alkaline Phosphatase 64 U/L (38-126); Anion Gap 12.4 mEq/L (5-15); Aspartate Amino Transferase 72 U/L (17-59); Bilirubin,Total 1.2 mg/dl (0.2-1.3); Blood Urea Nitrogen 23 mg/dl (9-20); Calcium 8.8 mg/dl (8.4-10.2); Carbon Dioxide 28 mmol/L (22.0-30.0); Chloride 95 mmol/L (98-107); Creatinine Clearance Estimated 55 mL/min (50-200); Estimated Glomerular Filt Rate 42 ml/min (>60); GFR (African American) 51 ML/MIN (>60); Globulin 3.4 g/dL (1.3-3.2); Glucose 150 mg/dl (74-100); Magnesium 1.8 mg/dl (1.6-2.3); Potassium 3.4 mmoL/L (3.5-5.1); Sodium 132 mmol/L (136-145); Total Protein,Serum 7.7 g/dl (6.3-8.2)
[2023-07-13 16:36] LABS: MANUAL DIFFERENTIAL MANUAL DIFFERENTIAL (MANUAL DIFF)
--- NOTE | 2023-07-13 16:39 | PC.NURSE ---
Back from RAD'
[2023-07-13 16:43] LABS: Lactic Acid 1.7 mmol/L (0.7-2.1)
[2023-07-13 16:45] LABS: NT Pro Brain Natriuretic Pep. 1060 pg/mL (0-450); Troponin I 0.02 ng/ml (0.00-0.034)
[2023-07-13 17:00] VITALS: BP 109/58; PULSE 73; RESP 15; O2SAT 99
[2023-07-13 17:01] LABS: Eosinophils % 1 % (0-3); Lymphocytes % 13 % (10-50); Monocytes % 3 % (2-9); Neutrophils % 83 % (42-76); Platelet Estimate Slight Decrease; RBC Morphology Normal; Total Cells Counted 100
[2023-07-13 17:30] VITALS: BP 104/65; PULSE 98; RESP 16; O2SAT 97
[2023-07-13 17:46] LABS: Coronavirus 19, PCR Not Detected (NotDetected); Influenza A, PCR Not Detected (NotDetected); Influenza B, PCR Not Detected (NotDetected)
[2023-07-13 18:20] VITALS: BP 107/57; PULSE 96; RESP 16; TEMP 36.7
== END 2023-07-13 18:21 | disposition home or self-care (01) ==
PROVIDERS: Emergency Provider Emergency Medicine; PCP Family Medicine
DX: J44.1 Chronic obstructive pulmonary disease with (acute) exacerbation (principal); R94.31 Abnormal electrocardiogram [ECG] [EKG]; E87.1 Hypo-osmolality and hyponatremia; E87.6 Hypokalemia; E11.9 Type 2 diabetes mellitus without complications; J30.9 Allergic rhinitis, unspecified; I48.0 Paroxysmal atrial fibrillation; G25.81 Restless legs syndrome; I27.20 Pulmonary hypertension, unspecified; Z79.4 Long term (current) use of insulin; Z79.84 Long term (current) use of oral hypoglycemic drugs; Z79.01 Long term (current) use of anticoagulants
CPT/HCPCS: 71046; 80053; 82803; 83605; 83735; 83880; 84484; 85007; 85025; 87040; 87636; 93005; 96365; 96374; 99284; J0456

== ENCOUNTER 2023-10-07 07:41 | Outpatient (CLI) | payer MEDICARE, BC, SELFPAY ==
--- NOTE | 2023-10-07 07:42 | CA_ITS ---
APPROVED REPORT EXAM: Comprehensive 2D, Doppler, and color-flow Echocardiogram Sole Molding Machine Operator: Sherry Tarango RT(R) Ht: 5 ft 10 in Wt: 212lbs BSA: 2.14 BP: 121/85 mmHg Indications: AFIB, COPD, ex smoker, edema, HTN, DM, SOB, hyperlipidemia, CHF, hx MV ring, hx biatrial enlargement. 2D Dimensions Left Atrium 5.92 cm M: 3.0 - 4.0 LVEF (Jacinto's) 38.60 % M: 52 - 72 LVOT 2.01 cm (M/F) 1.5-2.5 LV Volume 77.00 mL M: 62 - 150 LV Volume Index 36.0 mL/m2 M: 34 - 74 LA Volume 197.90 mL LA Volume Index 92.48 mL/m2 (M/F) 16-34 EF AP4 43.30 % EF AP2 35.7 % EF BP 38.6 % GL Strain -11.9 % M-Mode Dimensions RVDd 2.42 cm (0.9-2.6) LVDd 5.10 cm (3.5-5.7) Ao Diam 3.79 cm (2.0-3.7) LVDs 4.04 cm (3.5-5.7) IVSd 0.98 cm (0.6-1.1) PWd 0.55 cm (0.6-1.1) EF (Teich) 42.10% FS 20.80% EDV (Teich) 123.80 mL ESV (Teich) 71.70 mL Tricuspid Valve TR P. Velocity 245.00 cm/s RAP Estimate 10.00 mmHg RVSP 34.00 mmHg Left Ventricle The left ventricle is normal size. There is low normal LV systolic function. There is increased LV wall thickness. There is borderline global hypokinesis present. Diastolic function is indeterminate due to atrial fibrillation. LVEF is 50%. Right Ventricle The right ventricle is mildly dilated. The right ventricular systolic function is normal. Atria Left atrium is severely dilated. Right atrium is severely dilated. There is no Doppler evidence of interatrial shunt. Aortic Valve The aortic valve is mildly thickened. There is no aortic valvular stenosis. Mild aortic regurgitation. Mitral Valve s/p mitral valve annuloplasty with MV ring. No evidence of mitral valve stenosis. Mean MV gradient 4 mmHg (HR 102 bpm). There is severe mitral regurgitation present. At least 2 MR jets are noted, 1 of which is a central and the other is eccentric and anteriorly directed. Tricuspid Valve The tricuspid valve leaflets are thin and pliable. Mild tricuspid regurgitation. RVSP is 30-35 mmHg. Pulmonic Valve The pulmonary valve is normal in structure. Mild pulmonic regurgitation. Great Vessels The aortic root is moderately dilated, measuring 4.8 cm in diameter. The ascending aorta is not well-visualized. The IVC is dilated, but collapses > 50% with respirophasic variation. The RA pressure is estimated at 8 mmHg. Pericardium There is no pericardial effusion. Other Information Study Quality: Fair Conclusion Low normal LV systolic function (LVEF 50%). Mild RV dilation. Severe biatrial dilation. s/p MV annuloplasty with MV ring. Severe MR with at least 2 jets present (central jet and eccentric jet anteriorly directed). Mild AI. Mild TR. RVSP 30-35 mmHg. The aortic root is moderately dilated, measuring 4.8 cm in diameter. Compared to prior study from 05/2022, there are overall no significant changes. Electronically signed by : Swapna Johns MD 10/07/2023 10:35:12
== END 2023-10-07 23:59 ==
LOC: RT 07:42
PROVIDERS: PCP Family Medicine; Visit Provider Nurse Practitioner Family
DX: E78.5 Hyperlipidemia, unspecified (principal); G47.33 Obstructive sleep apnea (adult) (pediatric); I10 Essential (primary) hypertension; I27.21 Secondary pulmonary arterial hypertension; I34.0 Nonrheumatic mitral (valve) insufficiency; I48.20 Chronic atrial fibrillation, unspecified; I50.9 Heart failure, unspecified; J44.9 Chronic obstructive pulmonary disease, unspecified; Z98.890 Other specified postprocedural states
CPT/HCPCS: 93306

== ENCOUNTER 2023-11-03 07:54 | Day surgery (SDC) | payer MEDICARE, BC, SELFPAY ==
[2023-10-31 10:51] VITALS: BMI 29.0
[2023-11-03] VITALS (7 sets, daily range): BP systolic 94–123; BP diastolic 61–74; PULSE 56–81; RESP 14–18; TEMP 36.1; O2SAT 93–98
[2023-11-03] MEDS: LACTATED RINGERS 1000ML 1,000 ML 25 ML IV (08:04)
--- NOTE | 2023-11-03 08:13 | ECG_ITS ---
APPROVED REPORT Exam: Resting ECG HR:79 bpm ECG Measurements Heart Rate 79 AXES QRSd 151 QRS -57 QT 398 T -15 QTc 433 Conclusion ATRIAL FIBRILLATION LEFT AXIS DEVIATION [QRS AXIS < -30] RIGHT BUNDLE BRANCH BLOCK [120+ ms QRS DURATION, UPRIGHT V1, 40+ ms S IN I/aVL/V4/V5/V6] ABNORMAL ECG UNCONFIRMED REPORT Electronically signed by : Haroon Nair MD 11/03/2023 17:16:25
--- NOTE | 2023-11-03 08:20 | CA_ITS ---
APPROVED REPORT EXAM: Comprehensive 2D, Doppler, and color-flow Echocardiogram Back End Engineer: Payal Gil RVT Ht: 5 ft 10 in Wt: 217lbs BSA: 2.16 BP: 121/69 mmHg Rhythm: Atrial Fibrillation Indications: SUSPECTED SIGNIFICANT MR ON TTE,MITRAL RING,A-FIB,COPD,EDEMA,SOA,HTN,HLD Procedure After obtaining informed consent, patient underwent transesophageal echo in the [facility]. Type of Sedation : MAC Sedation start time: 10:15 Case end Time: 10:30 Transesophageal probe was inserted and advanced into esophagus without difficulty by Dr. Deven Johns. The LUZ MARIA was performed without complications. Throughout the procedure, the blood pressure, pulse oximetry, cardiac rhythm, and rate were monitored. The patient tolerated the procedure without adverse effects. Recovery from conscious sedation was uneventful and vital signs were stable. Left Ventricle The left ventricle is normal size. The left ventricular systolic function is normal. The left ventricular ejection fraction is within the normal range. There is increased LV wall thickness. There is normal LV segmental wall motion. LVEF is 55%. Right Ventricle Right ventricle is mildly dilated. The right ventricular systolic function is normal. Atria Left atrium is severely dilated. There is no mass or thrombus suspected in the left atrium or the left atrial appendage. Right atrium is severely dilated. Interatrial septum is intact without evidence of ASD or PFO. Aortic Valve The aortic valve is mildly thickened. The aortic valve is trileaflet. There is no aortic valvular stenosis. Mild aortic regurgitation. Mitral Valve s/p mitral valve ring annuloplasty. The ring is well-seated. No evidence of mitral valve stenosis. Mean MV gradient is 2 mmHg (HR 88 bpm). There are multiple, central mitral regurgitation jets. All jets are mild. Tricuspid Valve The tricuspid valve leaflets are thin and pliable. Mild tricuspid regurgitation. RVSP is normal. Pulmonic Valve The pulmonary valve is normal in structure. Trace pulmonic regurgitation. Great Vessels The aortic root is normal in size. Pericardium There is no pericardial effusion. Other Information Study Quality: Fair Conclusion Normal biventricular systolic function. Mild RV dilation. Mild AI. s/p MV annuloplasty ring. Ring is well-seated. Mild MR with multiple central jets. No MS. Mild TR. Of note, the patient is in atrial fibrillation (chronic) during the acquisition of the study images. Electronically signed by : Swapna Johns MD 11/07/2023 18:01:52
--- NOTE | 2023-11-03 08:23 | SUR.PREOP ---
EKG,LAB AT BEDSIDE
[2023-11-03 08:33] LABS: Basophils # 0.1 K/mm3 (0-0.2); Basophils % 1.1 % (0.1-2.0); Eosinophils # 0.4 K/mm3 (0.0-0.4); Eosinophils % 6.8 % (0.1-12.0); Hematocrit 41.7 % (42.0-52.0); Hemoglobin 14.2 g/dL (14.1-18.0); Lymphocytes # 1.3 K/mm3 (0.7-4.5); Lymphocytes % 21.4 % (10-50); Mean Corpuscular Hemoglobin 31.8 pg (27.0-31.2); Mean Corpuscular Volume 93.5 fl (80-94); Mean Platelet Volume 7.9 fl (7.4-10.4); Monocytes # 0.5 K/mm3 (0.1-1.0); Monocytes % 8.7 % (1.7-9.3); Neutrophils # 3.8 K/mm3 (1.8-7.8); Platelet Count 170 K/mm3 (142-424); Red Blood Count 4.46 M/mm3 (4.60-6.20); Red Cell Distribution Width 14.6 % (11.5-17.5); White Blood Count 6.2 K/mm3 (4.8-10.8)
--- NOTE | 2023-11-03 08:34 | P.PNANES_ITS ---
[facility] Disclaimer: The information contained in this section may have been updated after the patient was seen, as this information can be updated by other users. Medical History Abnormal electrocardiography Allergic rhinitis Atrial fibrillation Bronchiectasis COPD mixed type Daytime somnolence Dyspnea on exertion Edema Moderate to severe mitral regurgitation Pulmonary arterial hypertension Restless sleeper Severe mitral valve regurgitation Snoring Stopped smoking with greater than 30 pack year history Surgical History H/O cardiac catheterization History of colonoscopy S/P MVR (mitral valve repair) Family History Other Family history of diabetes mellitus Family history of hypertension Social History Smoking Status: Former smoker smoking status stop date: 1997 alcohol intake: never substance use type: denies use current occupational status: retired Travel in the last 8 weeks: None household members: spouse housing: house caffeine: No [facility] Anesthesia Checklist Patient Identification Patient Identification: Arm Band, Family () and Verbal (Name & ) Structural Data Admitted From: Home Planned Operative Procedure/s: LUZ MARIA Consent for Planned Operative Procedure(s) Verified: Yes Verified Documents: Surgical Consent and History and Physical NPO Status Verified Time NPO: 19:00 Chart Verification Results Verified: CBC, BMP, PT, PTT, INR, ECG and Chest Xray Additional verifications Patient : No Anesthesia Reactions: No Cardiovascular Assessment Pulse Rhythm: Irregular Peripheral Edema: No Airway Assessment Mallampati Score:: Class II C-Spine Mobility Assessed: Yes (FROM) TMJ Mobility Assessed: Yes Dentition: Poor Dentition (Majority of teeth missing upper & lower. Nothing loose per pt.) Neurological Assessment Level of Consciousness: Awake, Alert, Appropriate and Follows Commands Hx Seizures: No Numbness or tingling in extremities: No Anesthesia Plan Anesthesia Risk discussed: Yes Anesthesia Plan: Verified ASA Class: III Anesthesia Type: MAC
[2023-11-03 08:41] LABS: Chloride 104 mmol/L (98-107)
[2023-11-03 08:42] LABS: Potassium 3.5 mmoL/L (3.5-5.1); Sodium 138 mmol/L (136-145)
[2023-11-03 08:44] LABS: Activated Partial Thrombo Time 41.5 seconds (22.8-30.6); INR 2.49 (0.9-1.1); Prothrombin Time 25.3 seconds (10.1-12.5)
[2023-11-03 08:45] LABS: Anion Gap 7.5 mEq/L (5-15); Blood Urea Nitrogen 20 mg/dl (9-20); Calcium 9.1 mg/dl (8.4-10.2); Carbon Dioxide 30 mmol/L (22.0-30.0); Creatinine Clearance Estimated 58 mL/min (50-200); Estimated Glomerular Filt Rate 46 ml/min (>60); GFR (African American) 55 ML/MIN (>60); Glucose 114 mg/dl (74-100)
--- NOTE | 2023-11-03 11:01 | P.PNANES_ITS ---
[facility] Anesthesia Record Part I Anesthesia Record I Intake, IV Amount: 800 Hydration: Adequate Estimated blood loss (mL): 0 Urine output (mL): 0 Blood Products used (#): none Blood Pressure: 94/61 SaO2: 96 Pulse Rate: 75 Airway Patency: Patent Respiratory Rate: 14 Temperature: 97.0 F Patient is:: Drowsy, Nasal O2 (4L/min) and Stable Stable to PACU at:: 10:46
== END 2023-11-03 11:17 | disposition home or self-care (01) ==
PROVIDERS: PCP Family Medicine; Visit Provider Internal Medicine
DX: I34.0 Nonrheumatic mitral (valve) insufficiency (principal); I48.91 Unspecified atrial fibrillation; J44.9 Chronic obstructive pulmonary disease, unspecified; I10 Essential (primary) hypertension; R06.9 Unspecified abnormalities of breathing
CPT/HCPCS: 36415; 80048; 85025; 85610; 85730; 93005; 93270; 93312; 93319

== ENCOUNTER 2023-12-01 08:05 | Outpatient (CLI) | payer MEDICARE, BC, SELFPAY ==
[2023-12-01 08:21] LABS: Microscopic, Urine URINE MICROSCOPIC (MICROSCOPIC)
[2023-12-01 08:41] LABS: Appearance,Urine CLEAR (Clear); Bilirubin,Urine Negative (Negative); Blood, Urine Negative (Negative); Color,Urine YELLOW (Yellow); Glucose,Urine (UA) Negative (Negative); Ketones,Urine Negative (Negative); Leukocyte Esterase,Urine Negative (Negative); Nitrate,Urine Negative (Negative); PH,Urine 6.5 (5.0-8.5); Protein,Urine Negative (Negative); Specific Gravity, Urine 1.015 (1.005-1.030); Urobilinogen,Urine 0.2 EU/dl (0.2)
[2023-12-01 08:43] LABS: Hematocrit 42.8 % (42.0-52.0); Hemoglobin 13.8 g/dL (14.1-18.0); Mean Corpuscular HGB Conc 32.2 g/dL (31.8-35.4); Mean Corpuscular Volume 99.2 fl (80-94); Platelet Count 198 K/mm3 (142-424); Red Blood Count 4.31 M/mm3 (4.60-6.20); Red Cell Distribution Width 14.3 % (11.5-17.5); White Blood Count 5.8 K/mm3 (4.8-10.8)
[2023-12-01 09:03] LABS: Bacteria,Urine Trace /lpf; RBC,Urine Occasional #/hpf (0-3); WBC,Urine Occasional #/hpf (0-3)
[2023-12-01 09:09] LABS: Albumin Level 3.8 g/dl (3.5-5.0); Anion Gap 6.6 mEq/L (5-15); Blood Urea Nitrogen 22 mg/dl (9-20); Carbon Dioxide 33 mmol/L (22.0-30.0); Chloride 105 mmol/L (98-107); Estimated Glomerular Filt Rate 59 ml/min (>60); GFR (African American) 71 ML/MIN (>60); Glucose 108 mg/dl (74-100); Phosphorous 3.6 mg/dl (2.5-4.5); Potassium 3.6 mmoL/L (3.5-5.1); Sodium 141 mmol/L (136-145)
[2023-12-01 09:17] LABS: Creatinine,Urine Random 84 mg/dL (Not Estab.)
[2023-12-01 09:29] LABS: 25-OH Vitamin D, Total 112 ng/mL (30-100)
== END 2023-12-01 23:59 ==
LOC: LAB 08:06
PROVIDERS: PCP Family Medicine; Visit Provider Internal Medicine Nephrology
DX: N18.30 Chronic kidney disease, stage 3 unspecified (principal); Z51.81 Encounter for therapeutic drug level monitoring; Z79.01 Long term (current) use of anticoagulants; R80.9 Proteinuria, unspecified; E67.3 Hypervitaminosis D
CPT/HCPCS: 36415; 80069; 81001; 82306; 82570; 84155; 85014; 85018; 85048; 85049

== ENCOUNTER 2023-12-04 16:01 | Outpatient (POV) | payer MEDICARE, BC, SELFPAY | END 2023-12-04 23:59 | disposition home or self-care (01) | LOC: SC 16:02 | PROVIDERS: Visit Provider Internal Medicine Nephrology | DX: Z00.00 Encounter for general adult medical examination without abnormal findings (principal) ==

== ENCOUNTER 2024-05-13 09:44 | Outpatient (CLI) | payer MEDICARE, BC, SELFPAY ==
[2024-05-13] MEDS: ALBUTEROL 0.083% 2.5 MG/3 ML NEB IH (10:12)
== END 2024-05-13 23:59 | disposition home or self-care (01) ==
LOC: RT 09:44
PROVIDERS: PCP Family Medicine; Visit Provider Internal Medicine Pulmonary Disease
DX: J44.9 Chronic obstructive pulmonary disease, unspecified (principal); Z87.891 Personal history of nicotine dependence; J47.9 Bronchiectasis, uncomplicated
CPT/HCPCS: 94060; J7613

== ENCOUNTER 2024-07-26 09:49 | Outpatient (CLI) | payer MEDICARE, BC, SELFPAY ==
[2024-07-26 10:02] LABS: Microscopic, Urine URINE MICROSCOPIC (MICROSCOPIC)
[2024-07-26 10:21] LABS: Hematocrit 41.2 % (42.0-52.0); Hemoglobin 14.2 g/dL (14.1-18.0); Mean Corpuscular HGB Conc 34.5 g/dL (31.8-35.4); Mean Corpuscular Hemoglobin 31.6 pg (27.0-31.2); Mean Corpuscular Volume 91.7 fl (80-94); Platelet Count 148 K/mm3 (142-424); Red Cell Distribution Width 14.7 % (11.5-17.5); White Blood Count 6.3 K/mm3 (4.8-10.8)
[2024-07-26 10:55] LABS: Albumin Level 3.9 g/dl (3.5-5.0); Anion Gap 13.4 mEq/L (5-15); Blood Urea Nitrogen 23 mg/dl (9-20); Carbon Dioxide 28 mmol/L (22.0-30.0); Chloride 102 mmol/L (98-107); Estimated Glomerular Filt Rate 49 ml/min (>60); GFR (African American) 59 ML/MIN (>60); Glucose 116 mg/dl (74-100); Phosphorous 3.1 mg/dl (2.5-4.5); Potassium 4.4 mmoL/L (3.5-5.1); Sodium 139 mmol/L (136-145)
[2024-07-26 11:10] LABS: 25-OH Vitamin D, Total 104 ng/mL (30-100)
[2024-07-26 11:19] LABS: Appearance,Urine CLEAR (Clear); Bilirubin,Urine Negative (Negative); Blood, Urine Negative (Negative); Color,Urine YELLOW (Yellow); Glucose,Urine (UA) Negative (Negative); Ketones,Urine Negative (Negative); Leukocyte Esterase,Urine Negative (Negative); Nitrate,Urine Negative (Negative); Protein,Urine Negative (Negative); Specific Gravity, Urine 1.015 (1.005-1.030); Urobilinogen,Urine 0.2 EU/dl (0.2)
[2024-07-26 11:29] LABS: Creatinine,Urine Random 53 mg/dL (Not Estab.)
== END 2024-07-26 23:59 | disposition home or self-care (01) ==
LOC: LAB 09:52
PROVIDERS: PCP Family Medicine; Visit Provider Internal Medicine Nephrology
DX: N18.30 Chronic kidney disease, stage 3 unspecified (principal)
CPT/HCPCS: 36415; 80069; 81001; 82306; 82570; 84156; 85027

== ENCOUNTER 2024-09-19 17:42 | Emergency (ER) | payer MEDICARE, BC, SELFPAY ==
[2024-09-19 18:50] VITALS: BP 104/61; PULSE 80; RESP 19; TEMP 37.2; O2SAT 99; BMI 26.3
[2024-09-19 18:58] LABS: Influenza A, PCR Not Detected (NotDetected); Influenza B, PCR Not Detected (NotDetected)
--- NOTE | 2024-09-19 19:05 | EXP.UTC ---
Discharge Plan Disposition Patient Disposition: Home, Self-Care Condition: Good Prescriptions Prescriptions: New benzonatate 100 mg capsule 100 mg PO TID PRN (Reason: cough) Qty: 30 0RF No Action metformin 500 mg tablet 500 mg PO DAILY pantoprazole 40 mg tablet,delayed release (DR/EC) 40 mg PO DAILY simvastatin 40 mg tablet 40 mg PO DAILY warfarin 7.5 mg tablet 7.5 mg PO .COMPLEX Rx Instructions: 7.5 mg PO we -d and sat; Q w&s warfarin 5 mg tablet 5 mg PO .COMPLEX Rx Instructions: 5 mg PO mon,tues,thurs,fri,sun; qMTTFS nitroglycerin 0.4 mg tablet, sublingual 0.4 mg SUBLINGUAL ONCE PRN (Reason: Chest Pain) multivitamin Tablet 1 tab PO DAILY magnesium 250 mg tablet 250 mg PO DAILY cetirizine [Zyrtec] 10 mg tablet 10 mg PO DAILY PRN (Reason: Allergy Symptoms) tamsulosin 0.4 mg capsule 0.4 mg PO DAILY Patient Comments: TAKE 1 CAPSULE BY MOUTH ONCE DAILY fluticasone propionate [Flonase Allergy Relief] 50 mcg/actuation spray,suspension 2 spray intranasal DAILY 90 Days Qty: 16 2RF Rx Instructions: administer into each nostril metoprolol succinate 50 mg tablet extended release 24 hr 75 mg PO DAILY Qty: 120 2RF spironolactone 25 mg tablet See Rx Instructions .ROUTE .COMPLEX Qty: 45 2RF Dose Instruction: TAKE 1 TABLET BY MOUTH EVERY OTHER DAY Rx Instructions: TAKE 1 TABLET BY MOUTH EVERY OTHER DAY furosemide 40 mg tablet 40 mg PO TID 90 Days Qty: 270 2RF ProAir RespiClick 90 mcg/actuation aerosol powdr breath activated 2 inh inhalation QID Qty: 1 2RF Stiolto Respimat 2.5-2.5 mcg/actuation mist See Rx Instructions .ROUTE .COMPLEX Qty: 4 0RF Dose Instruction: INHALE 2 PUFFS BY MOUTH ONCE DAILY Rx Instructions: INHALE 2 PUFFS BY MOUTH ONCE DAILY Referrals Follow up/Referrals: Eddie Pulido MD [Primary Care Provider] - See instructions Activity Restrictions/Add. Instructions Additional Instructions/Restrictions: *Monitor Temp, Over the counter Motrin or Tylenol as directed/as needed Tylenol every 4 hours and Motrin every 6 hours (as long as your family doctor has told you that you can take it) for fever or pain. and straight to ER if unable to lower temp less than 101.0 after medication given *Warm salt water gargles may help to soothe the throat *Throat Lozenges? *Warm fluids like tea with honey may help to soothe the throat? *Sleep elevated *Humidifier/Vaporizer You was tested for COVID and Flu A & B this test should be back later this evening and be available on the [facility] My Health Portal Your throat swab was sent for culture. Those results are typically sent to your primary care. Be sure to follow up in 2-3 days with your family doctor/primary care physician if no improvement so they can review those result and treat if necessary. If you don?t have a primary care doctor, I recommend you get one but in the mean time, you will have to return to a walk in clinic Follow up IMMEDIATELY for new or worsening symptoms or no Noticeable improvement over the next 48-72 hours. 911 for difficulty breathing or swallowing Clinical Impressions Clinical Impression: COVID-19 Instructions Patient Instructions: COVID-19 Print Language Print Language: Occitan Discharge ED Provider: Renée Alonso [facility] [place] General Stated complaint: congestion Mode of Arrival: Ambulatory Source of Information: Patient and Spouse Limitations: No Limitations Time Seen by Provider: 09/19/24 19:05 Description of Symptoms (Recalled from Triage Doc. by RN): PATIENT C/O CONGESTION, WEAKNESS, SCRATCHY THROAT, RUNNY NOSE AND HEADACHE SINCE YESTERDAY HEENT Symptoms (Recalled from RN notes): Yes Resp Symptoms (Recalled from RN notes): No Skin Symptoms (Recalled from RN notes): No MS Symptoms (Recalled from RN notes): No Functional Status (Recalled from RN notes): WNL History of Present Illness Provider Complaint: Patient states that he was sick and was started on Zpack earlier in the week and has a couple doses left States that yesterday he started with nasal congestion, body aches, chills, scratchy throat and runny nose States that he was worried he may have COVID or flu and he is suppose to have a stress test done in the morning so he came in to get checked Related Data Home Medications ?Medication ?Instructions ?Recorded ?Confirmed metformin 500 mg tablet 500 mg PO DAILY Diabetes 07/02/21 09/14/24 pantoprazole 40 mg tablet,delayed 40 mg PO DAILY GERD 07/02/21 09/14/24 release simvastatin 40 mg tablet 40 mg PO DAILY Cholesterol 07/02/21 09/14/24 nitroglycerin 0.4 mg sublingual 0.4 mg sublingual ONCE PRN Chest 08/02/21 09/14/24 tablet Pain magnesium 250 mg tablet 250 mg PO DAILY Supplement 09/12/21 09/14/24 multivitamin 1 tab PO DAILY Supplement 09/12/21 09/14/24 warfarin 5 mg tablet 5 mg PO .COMPLEX Blood thinner 09/12/21 09/14/24 warfarin 7.5 mg tablet 7.5 mg PO .COMPLEX Blood thinner 09/12/21 09/14/24 cetirizine 10 mg tablet (Zyrtec) 10 mg PO DAILY PRN Allergy Symptoms 08/07/22 09/14/24 tamsulosin 0.4 mg capsule 0.4 mg PO DAILY 10/01/23 09/14/24 Previous Rx's ?Medication ?Instructions ?Recorded spironolactone 25 mg tablet See Rx Instructions .Route 11/14/23 .COMPLEX #45 tabs furosemide 40 mg tablet 40 mg PO TID Fluid 90 days #270 12/22/23 tabs fluticasone propionate 50 2 spray intranasal DAILY 90 days 05/13/24 mcg/actuation nasal #16 grams spray,suspension (Flonase Allergy Relief) albuterol sulfate 90 mcg/actuation 2 inh inhalation QID #1 ea 05/24/24 breath activated powder inhaler (ProAir RespiClick) tiotropium 2.5 mcg-olodaterol 2.5 See Rx Instructions .Route 08/02/24 mcg/actuation mist for inhalation .COMPLEX #4 grams (Stiolto Respimat) metoprolol succinate 50 mg 75 mg (1.5 x 50 mg) PO DAILY #120 09/14/24 tablet,extended release 24 hr tabs benzonatate 100 mg capsule 100 mg PO TID PRN cough #30 caps 09/19/24 Allergies Allergy/AdvReac Type Severity Reaction Status Date / Time No Known Allergies Allergy Verified 09/14/24 13:43 Worker's Comp Is this a Worker's Comp case?: No [facility] Disclaimer: The information contained in this section may have been updated after the patient was seen, as this information can be updated by other users. Medical History Encounter for pre-operative cardiovascular clearance Severe mitral valve regurgitation Allergic rhinitis Stopped smoking with greater than 30 pack year history COPD mixed type Bronchiectasis Dyspnea on exertion Atrial fibrillation Pulmonary arterial hypertension Edema Restless sleeper Daytime somnolence Snoring Moderate to severe mitral regurgitation Abnormal electrocardiography Surgical History S/P MVR (mitral valve repair) History of colonoscopy H/O cardiac catheterization Family History Other Family history of diabetes mellitus Family history of hypertension Social History Smoking Status: Former smoker smoking status stop date: 1997 alcohol intake: never substance use type: denies use current occupational status: retired Travel in the last 8 weeks: None household members: spouse housing: house caffeine: No Have you lived/traveled outside [place] in past 30 days?: No Contact w/someone who lives/traveled outside [place] past 30 days?: No Exposure to someone with infectious disease in past 14 days?: No Do you have a fever (greater than 100.4 F or 38 C)?: No Have you tested positive for COVID-19: No Exposed to someone with COVID-19 in past 14 days?: No Do you have a sore throat?: No Do you have a cough?: No Do you have any weakness?: No Do you have any diarrhea?: No Are you experiencing any unusual bleeding?: No Do you have any muscle aches/pain?: No Do you have any abdominal pain?: No Are you experiencing loss of taste or smell?: No ROS Obtained: Yes All systems reviewed & no additional complaints except as documented and Yes Systems reviewed as appropriate & no additional complaints except as documented Constitutional Constitutional: Reports system reviewed and no additional complaints, except as documented, Reports as per HPI, Reports body ache, Reports chills and Reports headache(s) ENT Ears, Nose, Mouth, and Throat: Reports system reviewed and no additional complaints, except as documented, Reports as per HPI, Reports headache(s), Reports nasal congestion, Reports nasal discharge and Reports sore throat Cardiovascular Cardiovascular: Reports system reviewed and no additional complaints, except as documented and Reports as per HPI Respiratory Respiratory: Reports system reviewed and no additional complaints, except as documented, Reports as per HPI and Reports cough Neurologic Neurologic: Reports headache(s) Physical Exam General General appearance: alert and in no apparent distress ENT ENT exam: Present mucous membranes moist Expanded ENT Exam Nose exam: Present other (clear drainage) Throat exam: Present other (Pharyngeal erythema noted) Respiratory Respiratory exam: Present normal lung sounds bilaterally; Absent respiratory distress, wheezes or stridor Cardiovascular Cardiovascular exam: Present regular rate, normal rhythm and normal heart sounds Abdominal Exam Abdominal exam: Present soft and normal bowel sounds; Absent distention or tenderness Neurological Exam Neurological exam: Present alert, oriented X3 and normal gait Medical Decision Making Medical Records Screening: Per USPSTF and CDC recommendations, given the prevalence of disease in our region, it is our hospital?s policy to screen for HIV and viral Hepatitis for all patients aged 18 and over and those with ongoing risk factors. Te Inquiry Pt receiving controlled substance: No Te was queried for this patient: No Vital Signs: 09/19/24 18:50 Temperature 98.9 F Temperature Source Oral Pulse Rate [Left Brachial] 80 Respiratory Rate 19 Blood Pressure [Left Arm] 104/61 L Blood Pressure Mean [Left Arm] 75 Blood Pressure Source [Left Arm] Automatic Cuff Blood Pressure Position [Left Arm] Sitting 02 Sat by Pulse Oximetry 99 Oxygen Delivery Method Room Air Lab Data Lab results reviewed: Yes I reviewed the patient's lab results. Orders (Tests/Meds): ORDERS Category Date Time Status Rapid PCR Covid and Flu A/B Stat Lab 09/19/24 18:27 Received
[2024-09-19 19:22] LABS: Coronavirus 19, PCR Detected (NotDetected)
[2024-09-19 19:29] LABS: UTC Strep Screen (Rapid) Negative (Negative)
[2024-09-19 19:34] VITALS: BP 104/61; PULSE 80; RESP 19; TEMP 37.2; O2SAT 99
== END 2024-09-19 19:36 | disposition home or self-care (01) ==
PROVIDERS: Emergency Provider Nurse Practitioner; PCP Family Medicine
DX: U07.1 COVID-19 (principal)
CPT/HCPCS: 87636; 87880; 99213; G0381

== ENCOUNTER 2024-10-07 11:00 | Outpatient (CLI) | payer MEDICARE, BC, SELFPAY ==
[2024-10-07 12:57] LABS: Vitamin B12 955 pg/mL (239-931)
[2024-10-07 13:28] LABS: Folate > 20.00 ng/mL
[2024-10-07] MEDS: REGADENOSON 0.4MG/5ML SYRINGE 0.4 MG IV (13:35)
[2024-10-07] MEDS: ISOTOPE MYOVIEW (PER STUDY) 1 DOSE IV (13:35)
[2024-10-07] MEDS: SODIUM CHLORIDE 0.9% 10ML SYR (RAD ONLY) 10 ML IV ×2 (13:35)
== END 2024-10-07 23:59 | disposition home or self-care (01) ==
LOC: RAD 11:02
PROVIDERS: Ophthalmology; PCP Family Medicine; Visit Provider Internal Medicine
DX: R06.00 Dyspnea, unspecified (principal); I10 Essential (primary) hypertension
CPT/HCPCS: 36415; 78452; 82607; 82746; 84425; 93017; 93018; A9502; J2785

== ENCOUNTER 2024-11-04 08:38 | Outpatient (CLI) | payer MEDICARE, BC, SELFPAY ==
[2024-11-04 09:19] LABS: Basophils # 0.1 K/mm3 (0-0.2); Basophils % 1.1 % (0.1-2.0); Eosinophils # 0.5 K/mm3 (0.0-0.4); Eosinophils % 9.1 % (0.1-12.0); Hematocrit 42.3 % (42.0-52.0); Hemoglobin 14.1 g/dL (14.1-18.0); Lymphocytes # 1.1 K/mm3 (0.7-4.5); Lymphocytes % 20.4 % (10-50); Mean Corpuscular HGB Conc 33.3 g/dL (31.8-35.4); Mean Corpuscular Hemoglobin 31.5 pg (27.0-31.2); Mean Corpuscular Volume 94.6 fl (80-94); Mean Platelet Volume 10.1 fl (7.4-10.4); Monocytes # 0.8 K/mm3 (0.1-1.0); Monocytes % 14.1 % (1.7-9.3); Neutrophils % 54.9 % (37.0-80.0); Platelet Count 176 K/mm3 (142-424); Red Blood Count 4.47 M/mm3 (4.60-6.20); Red Cell Distribution Width 14.3 % (11.5-17.5); White Blood Count 5.4 K/mm3 (4.8-10.8)
[2024-11-04 09:42] LABS: Chloride 104 mmol/L (98-107); Sodium 140 mmol/L (136-145)
[2024-11-04 09:43] LABS: Potassium 4.3 mmoL/L (3.5-5.1)
[2024-11-04 09:45] LABS: Alanine Aminotransferase 23 U/L (12-78); Anion Gap 10.3 mEq/L (5-15); Aspartate Amino Transferase 33 U/L (17-59); Bilirubin,Unconjugated 0.7 mg/dL (0.0-1.1); Blood Urea Nitrogen 25 mg/dl (9-20); Carbon Dioxide 30 mmol/L (22.0-30.0); Cholesterol 134 mg/dl (140-200); Estimated Glomerular Filt Rate 54 ml/min (>60); GFR (African American) 65 ML/MIN (>60); Triglycerides 118 mg/dl (30-150); VLDL Cholesterol 24 mg/dL (0-40)
[2024-11-04 09:46] LABS: Alkaline Phosphatase 66 U/L (38-126); Bilirubin,Indirect 0.7 mg/dL (0.0-0.9); Bilirubin,Total 0.7 mg/dl (0.2-1.3); Calcium 9.4 mg/dl (8.4-10.2); Chol/HDL Ratio 3.7 (1-3.5); Glucose 102 mg/dl (74-100); HDL Cholesterol 36 mg/dl (40-60); Magnesium 2.2 mg/dl (1.6-2.3)
[2024-11-04 09:57] LABS: Direct LDL Cholesterol 67.84 mg/dL (100-129)
[2024-11-04 10:00] LABS: Free T4 (Free Thyroxine) 1.52 ng/dl (0.78-2.19)
[2024-11-04 10:16] LABS: Thyroid Stimulating Hormone 2.64 uIU/mL (0.465-4.68)
== END 2024-11-04 23:59 | disposition home or self-care (01) ==
LOC: LAB 08:39
PROVIDERS: PCP Family Medicine; Visit Provider Internal Medicine
DX: I50.32 Chronic diastolic (congestive) heart failure (principal); J44.9 Chronic obstructive pulmonary disease, unspecified; Z98.890 Other specified postprocedural states; R60.9 Edema, unspecified; I48.20 Chronic atrial fibrillation, unspecified; I10 Essential (primary) hypertension; E78.2 Mixed hyperlipidemia; G47.33 Obstructive sleep apnea (adult) (pediatric); I27.21 Secondary pulmonary arterial hypertension
CPT/HCPCS: 36415; 80048; 80061; 80076; 83735; 84439; 84443; 85025

== ENCOUNTER 2025-02-03 07:40 | Outpatient (CLI) | payer MEDICARE, BC, SELFPAY ==
--- OUTSIDE RECORDS SUMMARY | 2025-02-03 07:44 | XMS_ITS | Data Portability ---
Author Organization [facility] [place] Address [address] [place] [address] Assessment No assessment recorded. Plan of Treatment Reminders Order Date Submit Date Provider Last Modified By Organization Details Last Modified Time Details Appointments None recorded. Lab None recorded. Referral None recorded. Procedures None recorded. Surgeries None recorded. Imaging None recorded. Medication Orders tamsulosin 0.4 mg capsule 2022 023 [email or web address] [facility]91, [address] [place], [address], 3 15:59:22 Patient TargetsNo targets recorded. Patient InstructionsNo instructions recorded. Reason for Referral None Reported. Medical Equipment None Reported. Allergies No known drug allergies Medications Name Sig Start Date Stop Date Status Note LastModified by Organization Details LastModified Time amoxicillin 500 mg capsule TAKE 1 CAPSULE BY MOUTH TWICE DAILY FOR 10 DAYS 07/09 completed Not Available Not Available Not Available furosemide 40 mg tablet TAKE 2 TABLETS BY MOUTH IN THE MORNING AND 1 IN THE EVENING active Not Available Not Available No t Available metformin 500 mg tablet TAKE 1 TABLET BY MOUTH TWICE DAILY active Not Available Not Available No t Available azithromyci n 250 mg tablet TAKE 1 TABLET BY MOUTH ONCE DAILY START ON DAY 2 OF THERAPY active Not Available Not Available No t Available metoprolol succinate ER 50 mg tablet,exte nded release 24 hr TAKE 1 TABLET BY MOUTH ONCE DAILY active Not Available Not Available No t Available warfarin 7.5 mg tablet TAKE 1 TABLET BY MOUTH DIRECTED FOR 90 DAYS active Not Available Not Available No t Available spironolact one 25 mg tablet TAKE 1 TABLET BY MOUTH EVERY OTHER DAY 07/09 completed Not Available Not Available Not Available simvastatin 40 mg tablet TAKE 1 TABLET BY MOUTH ONCE DAILY IN THE EVENING active Not Available Not Available No t Available tamsulosin 0.4 mg capsule Take 1 capsule by mouth once daily active Not Available Not Available No t Available pantoprazol e 40 mg tablet,tyler yed release TAKE 1 TABLET BY MOUTH ONCE DAILY active Not Available Not Available No t Available prednisone 50 mg tablet TAKE 1 TABLET BY MOUTH ONCE DAILY FOR 4 DAYS active Not Available Not Available No t Available warfarin 5 mg tablet TAKE 1 TABLET BY MOUTH ONCE DAILY DIRECTED active Not Available Not Available No t Available triamcinolo ne acetonide 0.1 % lotion APPLY TOPICALLY TWICE DAILY FOR 14 DAYS 07/09 completed Not Available Not Available Not Available levalbutero l HFA 45 mcg/actuati on aerosol inhaler Inhale 2 puffs every 6 hours by inhalatio n route. active Not Available Not Available No t Available magnesium active Not Available Not Maddy ilable Not Available warfarin active Not Available Not Avai lable Not Available nitroglycer in active Not Available Not Available Not Available furosemide active Not Available Not Av ailable Not Available simvastatin 07/09 completed Not Available Not Available Not Available spironolact one 07/09 completed Not Available Not Available Not Available metoprolol succinate 07/09 completed Not Available Not Available Not Available metformin 07/09 completed Not Available Not Available Not Available pantoprazol e 07/09 completed Not Available Not Available Not Available Zyrtec 10 mg capsule Take by oral route. active Not Available Not Available No t Available Stiolto Respimat 2.5 mcg-2.5 mcg/actuati on solution for inhalation INHALE 2 PUFFS BY MOUTH ONCE DAILY active Not Available Not Available No t Available fluticasone 0.05 % lotion-emol lient combo no.65 cream, topical kit 07/09 completed Not Available Not Available Not Available Vitals Date Recorded Body height Body mass index (BMI) Body weight Body temperature Provider Name and Address Organization Details Last Updated DateTime 07/09/2023 177.8 cm 29.8 kg/m2 27398.21 g 98 [degF] Lyn KIM - [facility] [place] [facility] [place] 07/09/2023 13:50:06 Social History Question Answer Notes LastModified by Organizat ion Details LastModified Time Tobacco Smoking Status Former Smoker JUDY Oejda - [facility] [place] 07/09/2023 13:54:33 What Is Your Level Of Alcohol Consumption? None [email or web address] Information not available 07/04/2023 Sex: Unknown Functional Status None recorded. Mental Status None recorded. Family History Nothing Reported Notes:Mother and Father dece ased Medical History Condition Response Heart Disease Y Past Encounters Encounter ID Performer Location Encounter Start Date Encounter Closed Date Diagnosis/Indication Diagnosis SNOMED-CT Code Diagnosis ICD10 Code Diagnosis Note [id number] Antonio Soriano Jr, MD [facility] [address] [address] 07/09/2023 13:30:09 07/09/2023 14:20:08 Lower urinary tract symptoms due to benign prostatic hypertrophy [id number] 9101 N40.1 Patient with lower urinary tract symptoms. Bladder scan shows a residual of 84 cc. We discussed alpha-bloc ker therapy to help improve his symptoms. This was called in for him. If this is improving his symptoms we discussed that he needs to stay on it and his primary care physician may refill it next year. If it is not improving his symptoms he is to return to see me. Health Concerns Section Related Observation LastModified by Organization Detai ls LastModified Time None Recorded Concern Status LastModified by Organization Details LastModified Time None Recorded Advance Directives Directive None Recorded Payers Insurance Date Sequence Insurance Name Policy Number Policy Kessler Covered Member ID Kessler Member ID Guarantor Name 08/07/2023 2 [place] [employer] [id number] Elvis Johnson [id number] Elvis Johnson 07/09/2023 1 [place] Elvis Johnson [id number] Elvis Johnson Notes Date Note Type Note Provider Name and Address Organization Details Recorded Time 07/09/2023 text/html Patient is a 77-year-old white male referred for lower urinary tract symptoms. He states slow stream urinary frequency and feeling of incomplete emptying. Bladder scan today shows a residual of 84 cc. Recent PSA was normal at 0.5. Patient has not been tried on any medications for prostate port. Antonio Soriano Jr, MD [address] [place] [address], [address], [place], [address], [facility] [place] 07/10/2023 16:01:18
[2025-02-03 07:50] LABS: Microscopic, Urine URINE MICROSCOPIC (MICROSCOPIC)
[2025-02-03 08:23] LABS: Basophils # 0.1 K/mm3 (0-0.2); Basophils % 1.3 % (0.1-2.0); Eosinophils # 0.4 Kmm3 (0.0-0.4); Eosinophils % 5.9 % (0.1-12.0); Hematocrit 43.8 % (42.0-52.0); Hemoglobin 14.6 g/dL (14.1-18.0); Immature Granulocytes # 0.02 10^3uL; Immature Granulocytes % 0.3 %; Lymphocytes # 1.3 K/mm3 (0.7-4.5); Lymphocytes % 21.4 % (10-50); Mean Corpuscular HGB Conc 33.3 g/dL (31.8-35.4); Mean Corpuscular Hemoglobin 31.8 pg (27.0-31.2); Mean Corpuscular Volume 95.4 fl (80-94); Mean Platelet Volume 9.7 fl (7.4-10.4); Neutrophils # 3.4 K/mm3 (1.8-7.8); Neutrophils % 55.1 % (37.0-80.0); Nucleated Red Blood Cells # 0 10^3/uL; Nucleated Red Blood Cells % 0 %; Platelet Count 157 K/mm3 (142-424); Red Blood Count 4.59 M/mm3 (4.60-6.20); Red Cell Distribution Width 13.2 % (11.5-17.5); Red Cell Distribution Width-SD 46.9 fL; White Blood Count 6.1 K/mm3 (4.8-10.8)
[2025-02-03 08:27] LABS: Appearance,Urine CLEAR (Clear); Bilirubin,Urine Negative (Negative); Blood, Urine Negative (Negative); Color,Urine YELLOW (Yellow); Glucose,Urine (UA) Negative (Negative); Ketones,Urine Negative (Negative); Leukocyte Esterase,Urine Negative (Negative); Nitrate,Urine Negative (Negative); PH,Urine 6.5 (5.0-8.5); Protein,Urine Negative (Negative); Urobilinogen,Urine 0.2 EU/dl (0.2)
[2025-02-03 08:34] LABS: Bacteria,Urine Trace /lpf; Squamous Epithelial Cell,Urine Occasional #/hpf (0-5)
[2025-02-03 08:46] LABS: Alanine Aminotransferase 16 U/L (12-78); Albumin Level 4.3 g/dl (3.5-5.0); Alkaline Phosphatase 64 U/L (38-126); Anion Gap 7.2 mEq/L (5-15); Aspartate Amino Transferase 27 U/L (17-59); Bilirubin,Direct 0.1 mg/dl (0.0-0.4); Bilirubin,Indirect 0.7 mg/dL (0.0-0.9); Bilirubin,Total 0.8 mg/dl (0.2-1.3); Bilirubin,Unconjugated 0.6 mg/dL (0.0-1.1); Blood Urea Nitrogen 34 mg/dl (9-20); Calcium 9.9 mg/dl (8.4-10.2); Carbon Dioxide 30 mmol/L (22.0-30.0); Chloride 106 mmol/L (98-107); Chol/HDL Ratio 3.8 (1-3.5); Cholesterol 155 mg/dl (140-200); Estimated Glomerular Filt Rate 42 ml/min (>60); GFR (African American) 51 ML/MIN (>60); Glucose 99 mg/dl (74-100); HDL Cholesterol 41 mg/dl (40-60); Potassium 4.2 mmoL/L (3.5-5.1); Sodium 139 mmol/L (136-145); Total Protein,Serum 6.3 g/dl (6.3-8.2); Triglycerides 152 mg/dl (30-150); VLDL Cholesterol 30 mg/dL (0-40)
[2025-02-03 08:47] LABS: Albumin Level 4.3 g/dl (3.5-5.0); Blood Urea Nitrogen 34 mg/dl (9-20); Calcium 9.9 mg/dl (8.4-10.2); Carbon Dioxide 30 mmol/L (22.0-30.0); Chloride 105 mmol/L (98-107); Estimated Glomerular Filt Rate 42 ml/min (>60); GFR (African American) 51 ML/MIN (>60); Glucose 99 mg/dl (74-100); Sodium 141 mmol/L (136-145)
[2025-02-03 08:54] LABS: Intact Parathyroid Hormone 72.1 pg/mL (7.5-53.5)
[2025-02-03 08:56] LABS: Direct LDL Cholesterol 78.83 mg/dL (100-129)
[2025-02-03 09:00] LABS: 25-OH Vitamin D, Total 93.6 ng/mL (30-100)
[2025-02-03 09:01] LABS: Free T4 (Free Thyroxine) 1.32 ng/dl (0.78-2.19)
[2025-02-03 09:18] LABS: Thyroid Stimulating Hormone 2.71 uIU/mL (0.465-4.68)
[2025-02-03 10:16] LABS: Creatinine,Urine Random 35 mg/dL (Not Estab.); Microalbumin < 6.000 mg/L (0-16.7)
== END 2025-02-03 23:59 | disposition home or self-care (01) ==
LOC: LAB 07:43
PROVIDERS: Student in an Organized Health Care Education/Training Program; PCP Family Medicine; Visit Provider Internal Medicine
DX: E78.2 Mixed hyperlipidemia (principal); I13.0 Hypertensive heart and chronic kidney disease with heart failure and stage 1 through stage 4 chronic kidney disease, or unspecified chronic kidney disease; I50.32 Chronic diastolic (congestive) heart failure; N18.31 Chronic kidney disease, stage 3a; R40.0 Somnolence
CPT/HCPCS: 36415; 80048; 80061; 80069; 80076; 81001; 82043; 82306; 82570; 83970; 84156; 84439; 84443; 85025

== ENCOUNTER 2025-03-21 07:10 | Outpatient (CLI) | payer MEDICARE, BC, SELFPAY ==
--- OUTSIDE RECORDS SUMMARY | 2025-02-11 12:00 | XMS_ITS | Encounter Summary ---
Author Organization [facility] Address [address] [place] [address] Care Team Providers Care Ship Boss Name Role Phone Farshad Pulido MD Primary Care Provider [phone] Nabil Gonzalez MD Unavailable [phone] Leyda Calderon Unavailable [phone] Reason for Visit * Reason Comments Chronic Kidney Disease Pt is a 79 year o ld male that presents for a follow up for CKD. Pt denies pain at the current moment. Pt denies complaints and concerns at the current moment. 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; Hypervolemia associated with renal insufficiency; BPH associated with nocturia Social History Tobacco Use Types Packs/Day Years Used Date Smoking Tobacco: Former Cigarettes 30 Passive Smoke Exposure: Past Smokeless Tobacco: Never Tobacco Cessation:Counseling Given: Not Answered Alcohol Use Standard Drinks/Week Comments Never 0 (1 standard drink = 0.6 oz pur e alcohol) Sex and Gender Information Value Date Recorded Sex Assigned at Not on file Legal Sex Male 6:15 AM EDT Gender Identity Not on file Sexual Orientation Not on file documented as of this encounter Last Filed Vital Signs Vital Sign Reading Time Taken Comments Blood Pressure 114/72 02/11/2025 11:35 AM EDT Pulse 76 02/11/2025 11:35 AM EDT Temperature - - Respiratory Rate 20 02/11/2025 11:35 AM EDT Oxygen Saturation - - Inhaled Oxygen Concentration - - Weight 91.2 kg (201 lb) 02/11/2025 11:35 AM EDT Height 177.8 cm (5' 10 ) 02/11/2025 11:35 AM EDT Body Mass Index 28.84 02/11/2025 11:35 AM EDT documented in this encounter Miscellaneous Notes * Progress Notes - Pradip Carter MD - 02/11/2025 12:00 PM EDT Images from the original note were not included. Nephrology Outpatient Clinic Progress Note [facility] Patient: Elvis Johnson Primary Care Provider: Farshad Pulido MD Reason for visit: Follow up CKD3 HPI/Subjective Elvis Johnson is a 79 y.o. male with a PMH of Mathews's esophagitis, rheumatic fever, aortic valve angioplasty, afib/flutter, DM, HTN, COPD, CHF, CKD 3 who presents for CKD and hypervitaminosis D. No change in health since last visit. He did recently do a week of increased furosemide to help gt rid of his lower extremity edema which has greatly improved. He is now taking just 80 mg lasix dailywith his spironolactone. ROS Review of Systems +lower extremity swelling improved Negative urinary symptoms History: Past Medical History: Diagnosis Date Afib (CMS/HCC) Atrial fibrillation (CMS/HCC) Cataract Congestive heart disease (CMS/HCC) COPD (chronic obstructive pulmonary disease) (CMS/HCC) HBP (high blood pressure) Hearing loss Hyperlipidemia Kidney stone Prediabetes Patient Active Problem List Diagnosis SDH (subdural hematoma) (CMS/HCC) Past Surgical History: Procedure Laterality Date AORTIC VALVE REPLACEMENT APPENDECTOMY DENTAL IMPLANT Bilateral KNEE SURGERY TUMOR REMOVAL Family History Family history unknown: Yes Social History Socioeconomic History Marital status: Spouse name: Not on file Number of children: Not on file Years of education: Not on file Highest education level: Not on file Occupational History Not on file Tobacco Use Smoking status: Former Current packs/day: 1.00 Average packs/day: 1 pack/day for 30.0 years (30.0 ttl pk-yrs) Types: Cigarettes Passive exposure: Past Smokeless tobacco: Never Substance and Sexual Activity Alcohol use: Never Drug use: Never Sexual activity: Not on file Other Topics Concern Not on file Social History Narrative Not on file Social Drivers of Health Financial Resource Strain: Not on file Food Insecurity: Not on file Transportation Needs: Not on file Physical Activity: Not on file Stress: Not on file Social Connections: Not on file Intimate Partner Violence: Not on file Housing Stability: Not on file No Known Allergies Medications: Current Medications: Current Outpatient Medications Medication Instructions cetirizine (ZYRTEC) 10 mg, Daily furosemide (LASIX) 40 mg, Daily levalbuterol (Xopenex) 45 MCG/ACT inhaler 1-2 puffs magnesium 30 mg, 2 times daily metFORMIN (GLUCOPHAGE) 500 mg, Daily with breakfast metoprolol succinate XL (Toprol-XL) 50 MG 24 hr tablet No dose, route, or frequency recorded. Multiple Vitamin (multivitamin) capsule 1 capsule, Daily nitroglycerin (Nitrostat) 0.4 MG SL tablet pantoprazole (Protonix) 40 MG EC tablet TAKE 1 TABLET BY MOUTH ONCE DAILY FOR 90 DAYS ProAir RespiClick 108 mcg, As needed simvastatin (ZOCOR) 40 mg, Every evening Spiriva Respimat 2.5 MCG/ACT inhaler 2 puffs, Daily spironolactone (ALDACTONE) 25 mg, Every other day Stiolto Respimat 2.5-2.5 MCG/ACT aerosol solution inhaler INHALE 2 PUFFS BY MOUTH ONCE DAILY tamsulosin (FLOMAX) 0.4 mg, Oral, Daily with dinner warfarin (Coumadin) 7.5 MG tablet Take 1 tablet (7.5 mg) by mouth 1 (one) time each day. Takes Friday and warfarin (COUMADIN) 5 mg, Daily Objective Visit Vitals BP 114/72 (BP Location: Left arm, Patient Position: Sitting, BP Cuff Size: Large adult) Pulse 76 Resp 20 Ht 1.778 m (5' 10 ) Wt 91.2 kg (201 lb) BMI 28.84 kg/m?? Smoking Status Former BSA 2.12 m?? Heart Rate: [76] 76 Resp: [20] 20 BP: (114)/(72) 114/72 Physical Exam: Physical Exam Constitutional: General: He is not in acute distress. Appearance: Normal appearance. He is normal weight. HENT: Head: Normocephalic and atraumatic. Right Ear: External ear normal. Left Ear: External ear normal. Nose: Nose normal. Mouth/Throat: Mouth: Mucous membranes are moist. Pharynx: Oropharynx is clear. Eyes: Conjunctiva/sclera: Conjunctivae normal. Pupils: Pupils are equal, round, and reactive to light. Cardiovascular: Rate and Rhythm: Normal rate. Pulses: Normal pulses. Pulmonary: Effort: Pulmonary effort is normal. Abdominal: General: Abdomen is flat. Musculoskeletal: General: Normal range of motion. Cervical back: Normal range of motion. Right lower leg: No edema. Left lower leg: No edema. Comments: Wearing compression socks, no pitting edema on exam Skin: General: Skin is warm and dry. Capillary Refill: Capillary refill takes less than 2 seconds. Neurological: General: No focal deficit present. Mental Status: He is alert and oriented to person, place, and time. Mental status is at baseline. Psychiatric: Mood and Affect: Mood normal. Behavior: Behavior normal. Thought Content: Thought content normal. Judgment: Judgment normal. Laboratory: LAB RESULTS Renal Panel: No results found for: NA , K , CL , CO2 , BUN , BUNPRE , BUNPOST , CREATININE , EGFR , CA , GLU , PHOS , ALBUMIN CBC: No results found for: WBC , RBC , HGB , HCT , PLT , MCV , MCH , MCHC , RDW , NRBC Iron studies: No results found for: FERRITIN , IRON , IRONSAT , TIBC Urine studies: No results found for: CAR , CAUR , CALCIUMUR , PHOSUR , [id number] , [id number] , CREATUR MBD: No results found for: PTH , CA , CALCIUM , ICAS , PHOS , MG VITAMIN D 25 No results found for: VITD25 VITAMIN D 1,25 No results found for: VITD32 Paraproteinemia Labs: No results found for: SPEP , KAPPALAMBDA Nutritional: No results found for: PREALBUMIN , VITD25 Endocrine profile: No results found for: TESTOSTERONE , TESTOST , FSH , LH , PROLACTIN , TSH , [id number] , FREET4 , CORTISOL Labs 07/26/24 CBC: WBC 6.3, Hgb 14.2, PLT 148 RFP: Na 139, K 4.4, Cl 102, CO 2 28, BUN 23, Cr 1.4, GFR 49, Ca 9.0, Phos 3.1, Alb 3.9 Vit d 104 UA: Negative blood, negative protein Labs: 02/03/2025 CBC: WBC 6.1, Hgb 14.6, Plt 157 RFP:Na 141, K 4.0, Cl 105, CO2 30, BUN 34, Cr 1.6, GFR 42, Glu 99, Ca 9.9, Phos 4.0, Alb 4.3 Urine creat 35, microalb <6, UA neg blood, neg protein Pth 72, vit d 93.6 I personally reviewed labs and imaging done recently by myself and other providers. Imaging: US with nl size kidneys. Bilateral anechoic areas in kidneys 3.5 cm right and 3.9 cm left. Impression & Plan: Elvis Johnson is a 79 y.o. male with PMH of Mathews's esophagitis, rheumatic fever, aortic valve angioplasty, afib/flutter, DM, HTN, COPD, CHF, CKD 3 who presents for CKD and hypervitaminosis D. #CKD Stage 3a Etiology: DM, HTN, Heart failure Baseline serum creatinine: 1.4 Most recent Scr: 1.4 GFR 49 Electrolytes, acid/base wnl Volume: chronic hypervolemia due to CHF on furosemide and spironolactone Urine: neg blood and neg protein UPCR 0.15 Anatomy: US with nl size kidneys. Bilateral anechoic areas in kidneys 3.5 cm right and 3.9 cm left. Risk factor reduction to slow progression of kidney disease: -BP Control goal BP <130/80 -DM control goal A1c <7.0% -Lifestyle management: ---Maintain healthy weight: patient is BMI 28 which is acceptable ---Diet recommendations: Heart healthy and Low sodium <2g/day ---Daily exercise 20-30 minutes as tolerated -Avoid NSAIDs -MESERET blockade: BP too low to tolerate -SGLT2 inhibitor: Start Jardiance 10 mg today 02/11/2025 #HTN in CKD - BP Goal <130/80 - at goal - On metoprolol 50mg daily, furosemide 40mg and mile 25mg #Anemia in CKD -No anemia on recent labs #CKD Bone and Mineral Disease #Hypervitaminosis D -Recommended he stop Vitamin supplements #Hyperlipidemia in CKD -on statin #BPH - on tamsulosin 0.4mg at bedtime Recommendations and plan: -Kidney function is stable overall. Maybe slight bump from recent aggressive diuresis. Electrolytes, acid/base, stable. Remains chronically hypervolemic on furosemide and spironolactone. I will [id number] Jardiance 10mg for assisted benefit in CKD and heart disease and may help him achieve euvolemia. -Check labs in 2-4 weeks to monitor creatinine after starting Jardiance. IT is acceptable to continue if there is a bump in creatinine for a <25% increase -Continue tamsulosin for BPH -Continue to avod NSAIDs and limit dietary sodium to <2g/day RTC in 6 months Pradip Carter MD Division of Nephrology [facility] ORDERS PLACED THIS ENCOUNTER Orders Placed This Encounter Procedures Albumin-creatinine ratio, urine, random Standing Status: Future Expected Date: 08/10/2025 Expiration Date: 11/08/2025 Release [facility]: Immediate Renal Function Panel, Plasma Standing Status: Future Expected Date: 08/10/2025 Expiration Date: 11/08/2025 [facility]: Immediate CBC W/O Differential Standing Status: Future Expected Date: 08/10/2025 Expiration Date: 11/08/2025 Release to patient in [facility]: Immediate Protein, Random, Urine with Creatinine Standing Status: Future Expected Date: 08/10/2025 Expiration Date: 11/08/2025 [place] [facility]: Immediate Urinalysis with reflex microscopic (Culture NOT Included) Standing Status: Future Expected Date: 08/10/2025 Expiration Date: 11/08/2025 [place] [facility]: Immediate Problem List Items Addressed This Visit 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 - Primary Relevant Medications empagliflozin (Jardiance) 10 MG Mixed hyperlipidemia Chronic diastolic heart failure (CMS/HCC) Chronic kidney disease-mineral and bone disorder (CKD-MBD) Hypervolemia associated with renal insufficiency BPH associated with nocturia documented in this encounter Plan of Treatment Scheduled Orders Name Type Priority Associated Diagnoses Orde r Schedule Albumin-creatinine ratio, urine, random Lab Routine CKD stage 3a, GFR 45-59 ml/min ([facility]) Expected: 08/10/2025 (Approximate), Expires: 11/08/2025 Renal Function Panel, Plasma Lab Routine CKD stage 3a, GFR 45-59 ml/min ([facility]) Expected: 08/10/2025 (Approximate), Expires: 11/08/2025 CBC W/O Differential Lab Routine CKD stage 3a, GFR 45-59 ml/min ([facility]) Expected: 08/10/2025 (Approximate), Expires: 11/08/2025 Protein, Random, Urine with Creatinine Lab Routine CKD stage 3a, GFR 45-59 ml/min ([facility]) Expected: 08/10/2025 (Approximate), Expires: 11/08/2025 Urinalysis with reflex microscopic (Culture NOT Included) Lab Routine CKD stage 3a, GFR 45-59 ml/min ([facility]) Expected: 08/10/2025 (Approximate), Expires: 11/08/2025 Renal function panel Lab Routine CKD stage 3a, GFR 45-59 ml/min ([facility]) Expected: 03/03/2025 (Approximate), Expires: 08/14/2026 documented as of this encounter Visit Diagnoses Diagnosis CKD stage 3a, GFR 45-59 ml/min ([facility])- Primary Mixed hyperlipidemia Chronic diastolic heart failure ([facility]) Chronic diastolic heart failure 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 Hypervolemia associated with renal insufficiency BPH associated with nocturia documented in this encounter Additional Health Concerns Assessment Noted Time A fall risk assessment has been complete d for the patient 12/04/2023 2:14 PM EST A Body Mass Index follow-up plan has been documented for the patient 02/11/2025 12:11 PM EDT documented as of this encounter Care Teams Ship Boss Relationship Specialty Start Date End Date Farshad Pulido MD [address] [place] [address] #1 [address]1 [place] [id number] PCP - General 07/05/22 Nabil Gonzalez MD [address] [place] [address] Surgeon Neurosurgery 07/05/22 Leyda Calderon PA [address] [place] [address] Physician Cement Fittings Maker Neurosurgery 12/02/22 documented as of this encounter
--- OUTSIDE RECORDS SUMMARY | 2025-03-21 07:14 | XMS_ITS | Patient Health Record ---
Author Organization [facility] Address [address] [place] [address] Care Team Providers Care Manager Spanish Name Role Phone Diego Lomax Primary Care Provider Unavail able Aubrey Burnett Unavailable [phone] Reason For Referral No Information Medications Medication SIG (Take, Route, Frequency, Duration) Notes Start Date End Date Status Metoprolol 25 mg 1 orally once a day Not-Taking traMADol HCl 10 mg 1 tablet as needed Orally as needed Not-Taking Iron 27 mg 1 tablet Orally Once a day Not-Taking multivitamin one tablet by mouth once daily Active Statin 1 orally once a day Not-Taking Atorvastatin Calcium 40 MG 1 tablet Orally Once a day Active Tylenol 500 mg 1 Orally as needed Not-Taking Dulera Not-Taking Nulytely with Flavor Packs 420 GM 8 ounces Orally every 15 minutes for 8 glasses, then repeat during night as directed, finishing 4 hours before your appointment time for 1 days 08/17/2014 Not-Taking ZyrTEC Allergy 10 MG 1 tablet Orally Onc e a day Active Simvastatin 40 MG 1 tablet in the even ing Orally Once a day for 30 day(s) Not-Taking Acetaminophen 1 tablet Orally as needed Not-Taking Meloxicam 15 MG 1 tablet Orally as needed Not-Taking Prepopik 10-3.5-12 MG-GM-GM as directed Orally as directed 08/19/2014 Not-Taking Cetirizine HCl 10 MG 1 tablet as needed Orally Once a day Not-Taking Lisinopril 5 MG 1 tablet Orally Once a day Active Ventolin HFA 108 (90 Base) MCG/ACT 2 puffs as needed Inhalation Up to four times a day Not-Taking Propafenone HCl 325 MG 1 tablet Orally T wice a day for 30 day(s) Not-Taking Toprol 50 MG as directed Once a day Not-Taking Furosemide 40 MG 1 tablet Orally twic e a day Active Warfarin Sodium 5 mg 1 tablet Orally 5 m g five times a week and 7.5 mg two times a week Active Carvedilol 6.25 MG 1 tablet with food Orally Twice a day for 30 day(s) Active Levalbuterol HCl 1 puff Inhalation Ev monserrat 4 hrs as needed Active Terbinafine HCl 250 MG 1 tablet Orally O nce a day for 10 day(s) Active Potassium Chloride ER 10 MEQ 1 tablet with food Orally Twice a day for 30 day(s) Active Calcium 600 600 MG 1 tablet Orally Ever y other day Active Clenpiq 10-3.5-12 MG-GM -GM/160ML as directed Orally as directed 08/01/2020 Active Vitamin D3 125 MCG (5000 UT) 1 tablet Orally twice a day Active metFORMIN HCl 500 mg 1 tablet with meals Orally Once a day Active Pantoprazole Sodium 40MG DR 1 tablet Orally Once a day for 90 Not-Taking Slow-Mag 2 tablets Orally Onc e a day Active Lasix 40 mg 1 tablet Orally as directed Not-Taking Potassium 10 Mg 1 tablet Orally as directed Not-Taking Pantoprazole Sodium 40 mg 1 tablet Orall y Once a day for 90 days Active Social History Tobacco Use: Social History Observation Description Date Details (start date - stop date) Former Smoker NA - NA Tobacco Use/Smoking Question Answer Notes Smoking Status former smoker Alcohol Screen Question Answer Notes Did you have a drink containing alcohol in the p ast year? No Points 0 Interpretation Negative Section Notes: Patient is going on Medicare next month. Patient is going on Medicare next month. Patient is going on Medicare next month. Patient is going on Medicare next month. Patient is going on Medicare next month. Patient is going on Medicare next month. Patient is going on Medicare next month. Patient is going on Medicare next month. 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) Active confirmed Problem Personal history of colonic polyps (Z86.010) Active confirmed Problem Mathews's esophagus (562960056) 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) Active confirmed Problem Mathews's esophagus (703106519) 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) Active confirmed Plan Of Treatment No Information Insurance Providers Payer Name Payer Address Payer Phone Subscriber Number Group Number Insured Name Patient Relationship to Insured Coverage Start Date Coverage End Date MEDICARE [address] Part B Claims and Claims ADR CT SYEDA Rai [phone] [id number] Elvis Johnson Self - patient is the insured [facility] [address] [place] [address] [phone] [id number] Elvis Johnson Self - patient is the insured Medical (General) History Medical History History ICD Code Barretts esophagus rectal bleeding Hiatal hernia carcinoid tumor, ileum, resected blood transfusion rheumatic heart disease anemia Heme-Positive stool gastric erythema small bowel carcinoid diverticulosis hemorrhoids cecal erythema colon polyps sigmoid petechiae fundic gland polyp Surgical History Surgery Date(Month/Year) mitral valve repair with annuloplasty 2007 internal bleeding - also 199 1997 with resection of small bowel carcinoid 1995 heart - also 1989 1983 appendectomy 1979 Hospitalization History Reason Date(Month/Year) abdominal pain and distention 2006
--- OUTSIDE RECORDS SUMMARY | 2025-03-21 07:14 | XMS_ITS | Clinical Summary ---
Author Organization [facility] Address [address] [place] [address] Care Team Providers Care Supervisor Covering And Lining Name Role Phone Farshad Pulido MD Primary Care Provider [phone] Nabil Gonzalez MD Unavailable [phone] Leyda Calderon Unavailable [phone] Allergies No known active allergies Medications warfarin (Coumadin) 7.5 MG tablet Take 1 tablet (7.5 mg) by mouth 1 (one) time each day. Takes Friday and 2 Active spironolactone (Aldactone) 25 MG tablet Take 1 tablet (25 mg) by mouth every other day. 2 Active simvastatin (Zocor) 40 MG tablet Take 1 tablet (40 mg) by mouth 1 (one) time each day in the evening. 2 Active pantoprazole (Protonix) 40 MG EC tablet TAKE 1 TABLET BY MOUTH ONCE DAILY FOR 90 DAYS 2 Active nitroglycerin (Nitrostat) 0.4 MG SL tablet 1 Active metoprolol succinate XL (Toprol-XL) 50 MG 24 hr tablet 2 Active metFORMIN (Glucophage) 500 MG tablet Take 1 tablet (500 mg) by mouth 1 (one) time each day with breakfast. 2 Active furosemide (Lasix) 40 MG tablet Take 1 tablet (40 mg) by mouth 1 (one) time each day. 2 in Am and 1 in PM 2 Active Multiple Vitamin (multivitamin) capsule Take 1 capsule by mouth 1 (one) time each day. Active magnesium 30 MG tablet Take 1 tablet (30 mg) by mouth 2 (two) times a day. Active cetirizine (ZyrTEC) 10 MG tablet Take 1 tablet (10 mg) by mouth 1 (one) time each day. Active warfarin (Coumadin) 5 MG tablet Take 1 tablet (5 mg) by mouth 1 (one) time each day. Active tamsulosin (Flomax) 0.4 MG 24 hr capsuleIndicati ons:BPH associated with nocturia Take 1 capsule (0.4 mg) by mouth 1 (one) time each day with dinner. 90 capsule 3 4 Active ProAir RespiClick 108 (90 Base) MCG/ACT aerosol powder Inhale 108 mcg as needed. 4 Active Spiriva Respimat 2.5 MCG/ACT inhaler Inhale 2 puffs daily. 5 Active empagliflozin (Jardiance) 10 MGIndications:C KD stage 3a, GFR 45-59 ml/min (CMS/HCC) Take 1 tablet by mouth daily. 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 Mixed hyperlipidemia 02/11/2025 Chronic diastolic heart failure 02/11/2025 Chronic kidney disease-mineral and bone disorder (CKD-MBD) 02/11/2025 Hypervolemia associated with renal insufficiency 02/11/2025 BPH associated with nocturia 02/11/2025 SDH (subdural hematoma) 07/01/2022 Encounters Date Type Department Care Team Description 02/11/2025 12:00 PM EDT Office Visit [facility] [address] [place] [phone] Pradip Carter MD CKD stage 3a, GFR 45-59 ml/min (CMS/HCC) (Primary Dx); Mixed hyperlipidemia; Chronic diastolic heart failure (CMS/HCC); Chronic kidney disease-mineral and bone disorder (CKD-MBD); 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; Hypervolemia associated with renal insufficiency; BPH associated with nocturia 02/11/2025 Travel from Last 3 Months Social History Tobacco Use Types Packs/Day Years Used Date Smoking Tobacco: Former Cigarettes 1 30 Passive Smoke Exposure: Past Smokeless Tobacco: Never Tobacco Cessation:Counseling Given: Not Answered Alcohol Use Standard Drinks/Week Comments Never 0 (1 standard drink = 0.6 oz pur e alcohol) Sex and Gender Information Value Date Recorded Sex Assigned at Not on file Legal Sex Male 6:15 AM EDT Gender Identity Not on file Sexual Orientation Not on file Last Filed Vital Signs Vital Sign Reading Time Taken Comments Blood Pressure 114/72 02/11/2025 11:35 AM EDT Pulse 76 02/11/2025 11:35 AM EDT Temperature 36.4 C (97.6 F) 07/30/2024 11:59 AM EDT Respiratory Rate 20 02/11/2025 11:35 AM EDT Oxygen Saturation 94% 07/30/2024 11:59 AM EDT Inhaled Oxygen Concentration - - Weight 91.2 kg (201 lb) 02/11/2025 11:35 AM EDT Height 177.8 cm (5' 10 ) 02/11/2025 11:35 AM EDT Body Mass Index 28.84 02/11/2025 11:35 AM EDT Plan of Treatment Health Maintenance Due Date Last Done Comments [facility]-Depression Screening 1945 [facility]-Hepatitis C Screening 1945 [facility]-Medicare Annual Wellness (AWV) 1946 [facility]-Infant/Child/Adol SDOH Screenings 1946 [facility]- SDOH Screenings 1964 [facility]-Adult SDOH Screenings 1964 [facility]-DTaP,Tdap,and Td Vaccines (1 - Tdap) 1965 [facility]-Pneumococcal Vaccine: 50+ Years (1 of 2 - PCV) 1965 [facility]-Zoster Vaccines (1 of 2) 1996 [facility]-RSV Vaccine: 60+ Years or (1 - 1-dose 75+ series) 2021 AKQ-GXLDR-10 Vaccine (3 - season) 2024 05/14/2021, 04/16/2021 [facility]-Influenza Vaccine (Season Ended) 2025 [facility]-Obesity Intervention Completed 025, 07/30/2024, 12/04/2023, Additional history exists HPV Vaccines Aged Out No longer eligi ble based on patient's age to complete this topic [facility]-HIB Vaccines Aged Out No longer e ligible based on patient's age to complete this topic [facility]-Hepatitis A Vaccines Aged Out No longer eligible based on patient's age to complete this topic [facility]-IPV Vaccines Aged Out No longer e ligible based on patient's age to complete this topic [facility]-Rotavirus Vaccines Aged Out No lo nger eligible based on patient's age to complete this topic Insurance MEDICARE [facility] Care Teams Supervisor Covering And Lining Relationship Specialty Start Date End Date Farshad Pulido MD [address] [place] [address] #1 #1 [place] [phone] PCP - General 07/05/22 Nabil Gonzalez MD [address] [facility] [address] [place] [id number] Surgeon Neurosurgery 07/05/22 Leyda Calderon PA [address] [facility] [address] [place] [address] Physician Stadium Manager Neurosurgery 12/02/22
--- OUTSIDE RECORDS SUMMARY | 2025-03-21 07:14 | XMS_ITS | Encounter Summary ---
Author Organization [facility] Address [address] [place] [address] Care Team Providers Care Appellate Conferee Name Role Phone Farshad Pulido MD Primary Care Provider [phone] Nabil Gonzalez MD Unavailable [phone] Leyda Calderon Unavailable [phone] Encounter Details Date Type Department Care Team (Latest Contact Info) Description 02/11/2025 Travel Social History Tobacco Use Types Packs/Day Years Used Date Smoking Tobacco: Former Cigarettes 1 30 Passive Smoke Exposure: Past Smokeless Tobacco: Never Alcohol Use Standard Drinks/Week Comments Never 0 (1 standard drink = 0.6 oz pur e alcohol) Sex and Gender Information Value Date Recorded Sex Assigned at Not on file Legal Sex Male 6:15 AM EDT Gender Identity Not on file Sexual Orientation Not on file documented as of this encounter Plan of Treatment Not on file documented as of this encounter Visit Diagnoses Not on filedocumented in this encounter Additional Health Concerns Assessment Noted Time A fall risk assessment has been complete d for the patient 12/04/2023 2:14 PM EST A Body Mass Index follow-up plan has been documented for the patient 02/11/2025 12:11 PM EDT documented as of this encounter Care Teams Appellate Conferee Relationship Specialty Start Date End Date Farshad Pulido MD [address] [place] [address] #1 #1 [place] [phone] PCP - General 07/05/22 Nabil Gonzalez MD [address] [place] [address] Surgeon Neurosurgery 07/05/22 Leyda Calderon PA [address] [place] [address] Physician Contractor Field Hauling Neurosurgery 12/02/22 documented as of this encounter
--- OUTSIDE RECORDS SUMMARY | 2025-03-21 07:14 | XMS_ITS | Data Portability ---
Author Organization [place] [facility] Address [address] [place] [address] Assessment No assessment recorded. Plan of Treatment Reminders Order Date Submit Date Provider Last Modified By Organization Details Last Modified Time Details Appointments None recorded. Lab None recorded. Referral None recorded. Procedures None recorded. Surgeries None recorded. Imaging None recorded. Medication Orders tamsulosin 0.4 mg capsule 2022 023 [email or web address] [facility], [address] [place], [address], 3 15:59:22 Patient TargetsNo targets recorded. Patient [...] Updated DateTime 07/09/2023 177.8 cm 29.8 kg/m2 25680.21 g 98 [degF] Lyn López [place] [facility] & [place] 07/09/2023 13:50:06 Social History None recorded. Functional Status Question Answer Note LastModified by Organization D etails LastModified Time What is your level of alcohol consumption? None [email or web address] Information not available 07/04/2023 Mental Status None recorded. Family History Nothing Reported Notes:Mother and Father dece ased Medical History Condition Response Heart Disease Y Past Encounters Encounter ID Performer Location Encounter Start Date Encounter Closed Date Diagnosis/Indication Diagnosis SNOMED-CT Code Diagnosis ICD10 Code Diagnosis Note [id number] Antonio Soriano Jr, MD [facility] [address] [address] 07/09/2023 13:30:09 07/09/2023 14:20:08 Lower urinary tract symptoms due to benign prostatic hypertrophy 4772822601 9101 N40.1 Patient with lower urinary tract [...] Kessler Member ID Guarantor Name 08/07/2023 2 [place] [employer]GRAM 104 Elvis Johnson [id number] Elvis Elizabeth 07/09/2023 1 [place] Elvis Johnson [id number] Elvis Johnson Notes Date Note Type [...] for prostate port. Antonio Soriano Jr, MD [address] [place] [address], [address], [place], [address], [facility] - [place] - [place] & [place] 07/10/2023 16:01:18
--- OUTSIDE RECORDS SUMMARY | 2025-03-21 07:14 | XMS_ITS | Patient Health Record ---
Author Organization [facility] Address [address] [place] [address] Care Team Providers Care Business Resiliency Manager Name Role Phone Monie SMART, (P2P) Diego Primary Care Provide r Unavailable Alisia Babind Unavailable [phone] Reason For Referral No Information Medications Medication SIG (Take, Route, Frequency, Duration) Notes Start Date End Date Status Breo Inhaler Active Atorvastatin Calcium 40 MG 1 tablet Oral ly Once a day Active Lasix 20 MG 1 tablet Orally Once a day for 30 day(s) Active Klor-Con 10 10 MEQ 1 tablet with food O rally Twice a day Active Furosemide 40 MG 1 tablet Orally Once a day Active Metoprolol Succinate 25 MG 1 capsule Ora lly Once a day Active Lisinopril 2.5 MG 1 tablet Orally Once a day Active Pantoprazole Sodium 40 MG 1 tablet Orall y Once a day Active Calcium + D 500-1000-40 MG-UNT-MCG Orally Active Warfarin Sodium 5 MG 1 tablet Orally Onc e a day Active ZyrTEC Allergy 10 MG 1 tablet Orally Onc e a day Active metFORMIN HCl ER 500 MG 1 tablet with ev ening meal Orally Once a day Active Problems Problem Type SNOMED Code ICD Code Onset Dates Problem Status W/U Status Risk Notes Problem Ureteral stone (94988427) Ureteral stone (N20.1) Active confirmed Problem Nocturia (088184993) Nocturia (R35.1) Active confirmed Problem Renal calculus (24146371) Renal calculi (N20.0) Active confirmed Problem 37476135 Balanitis (N48.1) Active confirmed Problem Benign essential hypertension (2013922) Benign essential hypertension (I10) Active confirmed Problem 357618545 Type 1 diabetes mellitus without complications (E10.9) Active confirmed Problem Frequency of micturition (985474039) Frequency of micturition (R35.0) Active confirmed Problem 02016083 Hydronephrosis, unspecified hydronephrosis type (N13.30) Active confirmed Problem 79495844 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) Active confirmed Problem Lower urinary tract symptoms due to benign prostatic hypertrophy (18192718493490) Benign prostatic hyperplasia with lower urinary tract symptoms (N40.1) Active confirmed Problem Long-term current use of anticoagulant (674870983) Blood thinned due to long-term anticoagulant use (Z79.01) Active confirmed Problem 40067946 Arteriovascular disease (I70.90) Active confirmed Plan Of Treatment No Information Insurance Providers Payer Name Payer Address Payer Phone Subscriber Number Group Number Insured Name Patient Relationship to Insured Coverage Start Date Coverage End Date MEDICARE PART [facility] [address] [address] [place], [place] [id number] [phone] [id number] PRIYANK SIMS Self - patient is the insured 9 [facility] FEDERAL CLAIMS [address] [place] [address] [id number] PRIYANK SIMS Self - patient is the insured Medical (General) History Medical History History ICD Code elevated cholesterol hearing loss COPD congestive heart failure mitral valve prolapse colonic polyps type II diabetes arthritis atrial fibrillation Type 1 diabetes mellitus without complic ations E10.9 Benign essential hypertension I10 kidney stones Surgical History Surgery Date(Month/Year) colonoscopy arthroscopic knee surgery colon resection circumcision 12/14/2018 knee surgery ABDOMINAL SURGERY heart surgery appendectomy
[2025-03-21 07:47] LABS: Basophils # 0.1 K/mm3 (0-0.2); Basophils % 1.2 % (0.1-2.0); Eosinophils # 0.4 Kmm3 (0.0-0.4); Eosinophils % 6.6 % (0.1-12.0); Hematocrit 41.9 % (42.0-52.0); Hemoglobin 14.3 g/dL (14.1-18.0); Immature Granulocytes # 0.02 10^3uL; Immature Granulocytes % 0.3 %; Lymphocytes # 1.2 K/mm3 (0.7-4.5); Lymphocytes % 20.7 % (10-50); Mean Corpuscular HGB Conc 34.1 g/dL (31.8-35.4); Mean Corpuscular Hemoglobin 32.8 pg (27.0-31.2); Mean Corpuscular Volume 96.1 fl (80-94); Mean Platelet Volume 10.1 fl (7.4-10.4); Monocytes # 0.8 K/mm3 (0.1-1.0); Monocytes % 13.1 % (1.7-9.3); Neutrophils # 3.4 K/mm3 (1.8-7.8); Neutrophils % 58.1 % (37.0-80.0); Nucleated Red Blood Cells # 0 10^3/uL; Nucleated Red Blood Cells % 0 %; Platelet Count 152 K/mm3 (142-424); Red Blood Count 4.36 M/mm3 (4.60-6.20); Red Cell Distribution Width 14.2 % (11.5-17.5); Red Cell Distribution Width-SD 49.9 fL; White Blood Count 5.8 K/mm3 (4.8-10.8)
[2025-03-21 09:09] LABS: Alanine Aminotransferase 18 U/L (12-78); Alkaline Phosphatase 69 U/L (38-126); Anion Gap 9.1 mEq/L (5-15); Aspartate Amino Transferase 31 U/L (17-59); Bilirubin,Direct 0.3 mg/dl (0.0-0.4); Bilirubin,Indirect 0.5 mg/dL (0.0-0.9); Bilirubin,Total 0.8 mg/dl (0.2-1.3); Bilirubin,Unconjugated 0.5 mg/dL (0.0-1.1); Blood Urea Nitrogen 25 mg/dl (9-20); Calcium 9.8 mg/dl (8.4-10.2); Carbon Dioxide 27 mmol/L (22.0-30.0); Chloride 107 mmol/L (98-107); Chol/HDL Ratio 3.6 (1-3.5); Cholesterol 136 mg/dl (140-200); Estimated Glomerular Filt Rate 45 ml/min (>60); GFR (African American) 55 ML/MIN (>60); Glucose 117 mg/dl (74-100); HDL Cholesterol 38 mg/dl (40-60); Magnesium 2.3 mg/dl (1.6-2.3); Potassium 4.1 mmoL/L (3.5-5.1); Sodium 139 mmol/L (136-145); Total Protein,Serum 6.3 g/dl (6.3-8.2); Triglycerides 183 mg/dl (30-150); VLDL Cholesterol 37 mg/dL (0-40)
[2025-03-21 09:19] LABS: Direct LDL Cholesterol 68.13 mg/dL (100-129)
[2025-03-21 09:25] LABS: Free T4 (Free Thyroxine) 1.52 ng/dl (0.78-2.19)
[2025-03-21 09:39] LABS: Thyroid Stimulating Hormone 2.62 uIU/mL (0.465-4.68)
== END 2025-03-21 23:59 | disposition home or self-care (01) ==
LOC: LAB 07:12
PROVIDERS: PCP Family Medicine; Visit Provider Internal Medicine
DX: I48.20 Chronic atrial fibrillation, unspecified (principal); I11.0 Hypertensive heart disease with heart failure; I50.9 Heart failure, unspecified; J44.89 Other specified chronic obstructive pulmonary disease; E78.5 Hyperlipidemia, unspecified; I27.20 Pulmonary hypertension, unspecified; Z98.890 Other specified postprocedural states
CPT/HCPCS: 36415; 80048; 80061; 80076; 83735; 84439; 84443; 85025

== ENCOUNTER 2025-04-14 08:36 | Outpatient (CLI) | payer MEDICARE, BC, SELFPAY ==
--- OUTSIDE RECORDS SUMMARY | 2025-04-14 08:39 | XMS_ITS | Patient Health Record ---
Author Organization [facility] Address [address] [place] [address] Care Team Providers Care Body Man Name Role Phone Monie SMART, (P2P) Diego Primary Care Provide r Unavailable lAisia aBbind Unavailable [phone] Reason For Referral No Information Medications Medication SIG (Take, Route, Frequency, Duration) Notes Start Date End Date Status Breo Inhaler Active Atorvastatin Calcium 40 MG 1 tablet Oral ly Once a day Active Lasix 20 MG 1 tablet Orally Once a day; Duration: 30 day(s) Active Klor-Con 10 10 MEQ [...] W/U Status Risk Notes Problem Ureteral stone (40335664) Ureteral stone (N20.1) Active confirmed Problem Nocturia (584416664) Nocturia (R35.1) Active confirmed Problem Renal calculus (64030379) Renal calculi (N20.0) Active confirmed Problem Balanitis (54069031) Balanitis (N48.1) Active confirmed Problem Benign essential hypertension (3172801) Benign essential hypertension (I10) Active confirmed Problem Type I diabetes mellitus without complication (603226114) Type 1 diabetes mellitus without complications (E10.9) Active confirmed Problem Frequency of micturition (222997809) Frequency of micturition (R35.0) Active confirmed Problem Hydronephrosis (80965495) Hydronephrosis, unspecified hydronephrosis type (N13.30) Active confirmed Problem Disorder of penis (27379868) 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) Active confirmed Problem Lower urinary tract symptoms due to benign prostatic hypertrophy (44186047709284) Benign prostatic hyperplasia with lower urinary tract symptoms (N40.1) Active confirmed Problem Long-term current use of anticoagulant (281058552) Blood thinned due to long-term anticoagulant use (Z79.01) Active confirmed Problem Generalized atherosclerosis (02122990) Arteriovascular disease (I70.90) Active confirmed Plan Of Treatment No Information Insurance Providers Payer Name Payer Address Payer Phone Subscriber Number Group Number Insured Name Patient Relationship to Insured Coverage Start Date Coverage End Date MEDICARE PART B [facility] [address] [address] [place], [place] [id number] PRIYANK SIMS Self - patient is the insured 9 [facility] FEDERAL CLAIMS [address] [place] [address] [id number] PRIYANK SIMS Self - patient is the insured 9 Medical (General) History Medical History History ICD [...]
--- OUTSIDE RECORDS SUMMARY | 2025-04-14 08:39 | XMS_ITS | Clinical Summary ---
Author Organization [facility] Address [address] [place] [address] Care Team Providers Care Pest Controller Assistant Name Role Phone Farshad Pulido MD Primary Care Provider [phone] Nabil Gonzalez MD Unavailable [phone] Leyda Calderon Unavailable [phone] Allergies No known active allergies Medications warfarin [...] Description 02/11/2025 12:00 PM EDT Office Visit [facility] [address] [place] [address] Pradip Carter MD CKD [...] or (1 - 1-dose 75+ series) 2021 GUV-SHEQM-12 Vaccine (3 - season) 2024 05/14/2021, 04/16/2021 [facility]-Influenza Vaccine (#1) 2025 [facility]-Obesity Intervention Completed 025, 07/30/2024, 12/04/2023, [...] age to complete this topic Insurance MEDICARE [facility] Care Teams Pest Controller Assistant Relationship Specialty Start Date End Date Farshad Pulido MD [address] [place] [address] #1 #1 [place] [id number] PCP - General 07/05/22 Nabil Gonzalez MD [address] [facility] [address] [place] [phone] Surgeon Neurosurgery 07/05/22 Leyda Calderon PA [address] [facility] [address] [place] [address] Physician Teletype Clerk Neurosurgery 12/02/22
--- OUTSIDE RECORDS SUMMARY | 2025-04-14 08:39 | XMS_ITS | Patient Health Record ---
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) Active confirmed Problem History of polyp of colon (situation) (210222306) Personal history of colonic polyps (Z86.010) Active confirmed Problem 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) Active confirmed Problem History of polyp of colon (situation) (737382802) Personal history of colonic polyps (Z86.010) Active confirmed Problem 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
--- OUTSIDE RECORDS SUMMARY | 2025-04-14 08:40 | XMS_ITS | Data Portability ---
Author Organization [place] - [place] [facility] Medicine and [facility] [place] Address [address] [place] [address] Assessment No assessment recorded. Plan of Treatment Reminders Order Date Submit Date Provider Last Modified By Organization Details Last Modified Time Details Appointments None recorded. Lab None recorded. Referral None recorded. Procedures None recorded. Surgeries None recorded. Imaging None recorded. Medication Orders tamsulosin 0.4 mg capsule 2022 023 [email or web address] [facility], [address] [place], [address], 3 15:59:22 Patient TargetsNo targets recorded. Patient [...] Updated DateTime 07/09/2023 177.8 cm 29.8 kg/m2 95075.21 g 98 [degF] Lyn López [place] [facility] & [place] 07/09/2023 13:50:06 Social History None recorded. Functional Status Question Answer Note LastModified by Organization D etails LastModified Time What is your level of alcohol consumption? None [email or web address] Information not available 07/04/2023 Mental Status None recorded. Family History Nothing Reported Notes:Mother and Father dece ased Medical History Condition Response Heart Disease Y Past Encounters Encounter ID Performer Location Encounter Start Date Encounter Closed Date Diagnosis/Indication Diagnosis SNOMED-CT Code Diagnosis ICD10 Code Diagnosis Note [id number] Antonio Soriano Jr, MD [facility] [address] [address] 07/09/2023 13:30:09 07/09/2023 14:20:08 Lower urinary tract symptoms due to benign prostatic hypertrophy [id number] 9101 N40.1 Patient with lower urinary tract [...] [employer] Member ID Guarantor Name 08/07/2023 2 [place] JULIA DELGADO OF [place] - [employer] 104 Elvis Johnson [id number] Elvis Elizabeth 07/09/2023 1 [place] ([place] Elvis Johnson [id number] Elvis Johnson Notes Date Note Type [...] for prostate port. Antonio Soriano Jr, MD [address] [place] [address], [address], [place], [address], [facility] [[email or web address]] - [place] - [place] & [place] 07/10/2023 16:01:18
[2025-04-14 09:26] LABS: Chloride 102 mmol/L (98-107); Potassium 3.7 mmoL/L (3.5-5.1); Sodium 139 mmol/L (136-145)
[2025-04-14 09:29] LABS: Anion Gap 10.7 mEq/L (5-15); Blood Urea Nitrogen 24 mg/dl (9-20); Calcium 9.3 mg/dl (8.4-10.2); Carbon Dioxide 30 mmol/L (22.0-30.0); Creatinine,Serum 1.30 mg/dl (0.66-1.25); Estimated Glomerular Filt Rate 53 ml/min (>60); GFR (African American) 65 ML/MIN (>60); Glucose 114 mg/dl (74-100)
== END 2025-04-14 23:59 | disposition home or self-care (01) ==
PROVIDERS: PCP Family Medicine; Visit Provider Internal Medicine
DX: I10 Essential (primary) hypertension (principal)
CPT/HCPCS: 36415; 80048

== ENCOUNTER 2025-04-28 08:21 | Day surgery (SDC) | payer MEDICARE, BC, SELFPAY ==
[2025-04-28] VITALS (14 sets, daily range): BP systolic 89–130; BP diastolic 46–77; PULSE 51–85; RESP 18–20; TEMP 36.9; O2SAT 91–98; BMI 27.6
--- NOTE | 2025-04-28 07:12 | IR_ITS ---
APPROVED REPORT Patient Location: Outpatient PROCEDURES Right heart catheterization Left heart catheterization Left ventriculogram Selective coronary angiogram INDICATION History of mitral valve replacement, Suspect pulmonary hypertension, Abnormal Myoview, Angina pectoris Informed consent was obtained prior to the procedure. COMPLICATIONS NONE Estimated Blood Loss: LESS THAN 10 ML TECHNIQUE One percent lidocaine was used to anesthetize the right anterior aspect of the right wrist. The right radial artery was accessed via the Seldinger technique and a 6 Jamaican hydrophilic sheath was placed in the right radial artery. Following this one percent lidocaine was used to anesthetize the right anterior aspect of the right neck. The right internal jugular vein was accessed via the Seldinger technique and a 7 Jamaican sheath was placed in the right internal jugular vein. Following this an arterial cocktail was administered using 5000U heparin, 2.5 mg verapamil, 1mg Lidocaine and 800mcg nitroglycerin into the right radial sheath. A JL3 catheter was used to perform left heart catheterization left ventriculogram and selective coronary angiography while a [place]-Eli catheter was used to perform right heart catheterization. Saturations were obtained in the pulmonary artery and right atrium. At the end of the procedure the arterial sheath was removed good hemostasis was achieved using Traclet band. Patient was transferred to the postop holding area in stable condition for venous sheath removal. ANGIOGRAPHIC RESULTS The left main artery Normal The left anterior descending artery Has mild 10% diffuse luminal irregularities and is accompanied by AMINA II flow. A small to medium sized first diagonal artery has an ostial 70% stenosis accompanied by AMINA I flow The circumflex artery Nondominant with 20% stenosis in the proximal obtuse marginal artery The right coronary artery Large and dominant with proximal and mid vessel diffuse vascular ectasia with diffuse 10 to 20% stenoses accompanied by AMINA I flow The DOMÍNGUEZ ventriculogram reveals Preserved at 55% The left ventricular end-diastolic pressure Less than 5 mmHg Right atrial pressure 2 mmHg Pulmonary artery pressure 12/7 mmHg Pulmonary artery occlusion pressure 3 mmHg Right atrial saturation 77% Pulmonary artery saturation 76% Aortic saturation 96% Cardiac output 5.4 L/min IMPRESSION Slow flow down the coronary arteries consistent with moderate to severe endothelial dysfunction Preserved ejection fraction Low intracardial pulmonary filling pressures Normal cardiac output PLAN 1. Recommend medical management for endothelial dysfunction 2. Given patient is on the hemodynamically dry side it may be reasonable to cut back on the loop diuretics to once a day rather than twice daily 3. Risk factor modification Electronically signed by : Phu Deluna MD 04/28/2025 12:13:49
[2025-04-28 08:44] LABS: Hematocrit 46.0 % (42.0-52.0); Hemoglobin 15.6 g/dL (14.1-18.0); Immature Granulocytes % 0.5 %; Mean Corpuscular HGB Conc 33.9 g/dL (31.8-35.4); Mean Corpuscular Hemoglobin 32.2 pg (27.0-31.2); Mean Corpuscular Volume 94.8 fl (80-94); Nucleated Red Blood Cells % 0 %; Platelet Count 187 K/mm3 (142-424); Red Blood Count 4.85 M/mm3 (4.60-6.20); Red Cell Distribution Width-SD 46.8 fL; White Blood Count 7.6 K/mm3 (4.8-10.8)
[2025-04-28 08:52] LABS: Chloride 98 mmol/L (98-107); Potassium 3.6 mmoL/L (3.5-5.1); Sodium 136 mmol/L (136-145)
[2025-04-28 08:54] LABS: INR 1.19 (0.9-1.1); Prothrombin Time 13.0 seconds (10.1-12.5)
[2025-04-28 08:55] LABS: Anion Gap 11.6 mEq/L (5-15); Blood Urea Nitrogen 29 mg/dl (9-20); Carbon Dioxide 30 mmol/L (22.0-30.0); Creatinine Clearance Estimated 54 mL/min (50-200); Creatinine,Serum 1.40 mg/dl (0.66-1.25); Estimated Glomerular Filt Rate 49 ml/min (>60); GFR (African American) 59 ML/MIN (>60)
[2025-04-28 08:56] LABS: Calcium 9.6 mg/dl (8.4-10.2); Glucose 118 mg/dl (74-100)
[2025-04-28] MEDS: LIDOCAINE 1% 10ML MDV 10 ML IJ (10:36)
[2025-04-28] MEDS: HEPARIN 1,000 UNITS/ML 10ML VIAL (CATH LAB) 5000 UNIT IV (10:37)
[2025-04-28] MEDS: NITROGLYCERIN 800MCG/8ML SYR (CATH LAB) 800 MCG IA (10:37)
[2025-04-28] MEDS: VERAPAMIL 2.5MG/ML 2ML VIAL 2.5 MG IV (10:37)
[2025-04-28] MEDS: HEPARIN 1,000 UNITS/500ML NS (CATH LAB) 3000 UNIT IV (10:37)
[2025-04-28] MEDS: 0.9 % SODIUM CHLORIDE 500 ML 25 ML IV (10:37)
[2025-04-28] MEDS: MIDAZOLAM HCL 1MG/ML 5ML VIAL 1 MG IV (10:38)
[2025-04-28] MEDS: FENTANYL 100MCG/2ML VIAL 50 MCG IV (10:38)
[2025-04-28] MEDS: IOPAMIDOL-370 (76%);100ML BOTTLE 65 ML IV (12:33)
[2025-04-28 12:35] LABS: CATHL Arterial O2 SAT 76.4 % (90-100); CATHL Venous O2 SAT 77.2 % (75-80)
== END 2025-04-28 14:45 | disposition home or self-care (01) ==
LOC: CATHLAB 08:22
PROVIDERS: PCP Family Medicine; Visit Provider Internal Medicine
PROC: 4A023N7 Measurement of Cardiac Sampling and Pressure, Left Heart, Percutaneous Approach (ICD-10-PCS; CPT 93452; principal; 2025-04-28 08:45)
PROC: 4A023N6 Measurement of Cardiac Sampling and Pressure, Right Heart, Percutaneous Approach (ICD-10-PCS; CPT 93451; 2025-04-28 08:45)
DX: I25.118 Atherosclerotic heart disease of native coronary artery with other forms of angina pectoris (principal); I27.21 Secondary pulmonary arterial hypertension; R94.31 Abnormal electrocardiogram [ECG] [EKG]; R94.39 Abnormal result of other cardiovascular function study; I48.20 Chronic atrial fibrillation, unspecified; R60.9 Edema, unspecified; I34.0 Nonrheumatic mitral (valve) insufficiency; J44.9 Chronic obstructive pulmonary disease, unspecified; I11.0 Hypertensive heart disease with heart failure; I50.33 Acute on chronic diastolic (congestive) heart failure; E11.9 Type 2 diabetes mellitus without complications; E78.2 Mixed hyperlipidemia; G47.33 Obstructive sleep apnea (adult) (pediatric); Z87.891 Personal history of nicotine dependence; Z95.2 Presence of prosthetic heart valve; Z79.01 Long term (current) use of anticoagulants; Z79.84 Long term (current) use of oral hypoglycemic drugs; Z79.899 Other long term (current) drug therapy; Z79.51 Long term (current) use of inhaled steroids; Z82.49 Family history of ischemic heart disease and other diseases of the circulatory system
CPT/HCPCS: 80048; 82810; 85025; 85610; 93453; 93460; 93566; 99152; C1725; C1769; C1894; J1200; J1644; J3010; J7040; Q9967

== ENCOUNTER 2025-07-04 14:50 | Outpatient (CLI) | payer MEDICARE, BC, SELFPAY ==
--- OUTSIDE RECORDS SUMMARY | 2025-07-04 14:53 | XMS_ITS | Clinical Summary ---
Author Organization [facility] Address [address] [place] [address] Care Team Providers Care Acid Strength Inspector Name Role Phone Farshad Pulido MD Primary Care Provider [phone] Nabil Gonzalez MD Unavailable [phone] Leyda Claderon Unavailable [phone] Allergies No known active allergies Medications warfarin [...] with nocturia 02/11/2025 SDH (subdural hematoma) 07/01/2022 Social History Tobacco Use Types Packs/Day Years [...] 02/11/2025 11:35 AM EDT Plan of Treatment Upcoming Encounters Date Type Department Care Team (Late st Contact Info) Description 09/16/2025 9:20 AM EST Office Visit [facility] [address] [place] [phone] Pradip Carter MD [address] [place] [address] Health Maintenance Due Date Last Done Comments [facility]-Depression Screening 1945 [facility]-Hepatitis C Screening 1945 [facility]-Medicare Annual Wellness (AWV) 1945 [facility]-Infant/Child/Adol SDOH Screenings 1945 [facility]- SDOH Screenings 1964 [facility]-Adult SDOH Screenings 1964 [facility]-DTaP,Tdap,and Td Vaccines (1 - Tdap) 1965 [facility]-Pneumococcal Vaccine: 50+ Years (1 of 2 - PCV) 1965 [facility]-Zoster Vaccines (1 of 2) 1996 [facility]-RSV Vaccine: 60+ Years or (1 - 1-dose 75+ series) 2021 [id number] Vaccine (3 - season) 2025 05/14/2021, 04/16/2021 [facility]-Influenza Vaccine (#1) 2025 [facility]-Obesity Intervention Completed 02/11/ 025, 07/30/2024, 12/04/2023, Additional history exists HPV [...] complete this topic Insurance MEDICARE [facility] Care Teams Acid Strength Inspector Relationship Specialty Start Date End Date Farshad Pulido MD [address] [place] [address] #1 #1 [place] [id number] PCP - General 07/05/22 Nabil Gonzalez MD [address] [place] [address] Surgeon Neurosurgery 07/05/22 Leyda Calderon PA [address] [place] [address] Physician Varnish Filterer Neurosurgery 12/02/22
[2025-07-04 16:19] LABS: Hematocrit 46.6 % (42.0-52.0); Hemoglobin 15.3 g/dL (14.1-18.0); Immature Granulocytes % 0.6 %; Mean Corpuscular HGB Conc 32.8 g/dL (31.8-35.4); Mean Corpuscular Hemoglobin 31.4 pg (27.0-31.2); Mean Corpuscular Volume 95.5 fl (80-94); Nucleated Red Blood Cells % 0 %; Platelet Count 167 K/mm3 (142-424); Red Blood Count 4.88 M/mm3 (4.60-6.20); Red Cell Distribution Width-SD 47.9 fL; White Blood Count 6.2 K/mm3 (4.8-10.8)
[2025-07-04 16:27] LABS: INR 2.68 (0.9-1.1); Prothrombin Time 27.7 seconds (10.1-12.5)
[2025-07-04 17:09] LABS: Alanine Aminotransferase 16 U/L (12-78); Albumin Level 4.2 g/dl (3.5-5.0); Alkaline Phosphatase 84 U/L (38-126); Anion Gap 15.2 mEq/L (5-15); Aspartate Amino Transferase 23 U/L (17-59); Bilirubin,Direct 0.6 mg/dl (0.0-0.4); Bilirubin,Indirect 0.6 mg/dL (0.0-0.9); Bilirubin,Total 1.2 mg/dl (0.2-1.3); Bilirubin,Unconjugated 0.6 mg/dL (0.0-1.1); Blood Urea Nitrogen 18 mg/dl (9-20); Calcium 9.3 mg/dl (8.4-10.2); Carbon Dioxide 27 mmol/L (22.0-30.0); Chloride 102 mmol/L (98-107); Cholesterol 152 mg/dl (140-200); Creatinine,Serum 1.40 mg/dl (0.66-1.25); Estimated Glomerular Filt Rate 49 ml/min (>60); GFR (African American) 59 ML/MIN (>60); Glucose 104 mg/dl (74-100); HDL Cholesterol 42 mg/dl (40-60); Magnesium 2.1 mg/dl (1.6-2.3); Potassium 4.2 mmoL/L (3.5-5.1); Sodium 140 mmol/L (136-145); Total Protein,Serum 6.3 g/dl (6.3-8.2); Triglycerides 163 mg/dl (30-150)
[2025-07-04 17:26] LABS: Free T4 (Free Thyroxine) 1.53 ng/dl (0.78-2.19)
[2025-07-04 17:40] LABS: Thyroid Stimulating Hormone 1.52 uIU/mL (0.465-4.68)
== END 2025-07-04 23:59 | disposition home or self-care (01) ==
PROVIDERS: PCP Family Medicine; Visit Provider Internal Medicine
DX: Z01.810 Encounter for preprocedural cardiovascular examination (principal); I25.10 Atherosclerotic heart disease of native coronary artery without angina pectoris; I48.20 Chronic atrial fibrillation, unspecified; R79.1 Abnormal coagulation profile; I11.0 Hypertensive heart disease with heart failure; I50.9 Heart failure, unspecified; E78.5 Hyperlipidemia, unspecified
CPT/HCPCS: 36415; 80048; 80061; 80076; 83735; 84439; 84443; 85025; 85610

== ENCOUNTER 2025-09-07 08:35 | Outpatient (CLI) | payer MEDICARE, BC, SELFPAY ==
[2025-09-07 08:46] LABS: Microscopic, Urine URINE MICROSCOPIC (MICROSCOPIC)
[2025-09-07 09:08] LABS: Hematocrit 44.7 % (42.0-52.0); Hemoglobin 14.6 g/dL (14.1-18.0); Mean Corpuscular HGB Conc 32.7 g/dL (31.8-35.4); Mean Corpuscular Hemoglobin 31.2 pg (27.0-31.2); Mean Corpuscular Volume 95.5 fl (80-94); Nucleated Red Blood Cells % 0 %; Platelet Count 141 K/mm3 (142-424); Red Blood Count 4.68 M/mm3 (4.60-6.20); Red Cell Distribution Width-SD 51.0 fL; White Blood Count 6.7 K/mm3 (4.8-10.8)
[2025-09-07 10:28] LABS: Albumin Level 3.8 g/dl (3.5-5.0); Anion Gap 8.8 mEq/L (5-15); Blood Urea Nitrogen 27 mg/dl (9-20); Calcium 9.3 mg/dl (8.4-10.2); Carbon Dioxide 29 mmol/L (22.0-30.0); Chloride 107 mmol/L (98-107); Creatinine,Serum 1.60 mg/dl (0.66-1.25); Estimated Glomerular Filt Rate 42 ml/min (>60); GFR (African American) 51 ML/MIN (>60); Glucose 105 mg/dl (74-100); Phosphorous 3.5 mg/dl (2.5-4.5); Potassium 3.8 mmoL/L (3.5-5.1); Sodium 141 mmol/L (136-145)
[2025-09-07 18:57] LABS: Bilirubin,Urine Negative (Negative); Color,Urine YELLOW (Yellow); Glucose,Urine (UA) 3+ (Negative); Ketones,Urine Negative (Negative); Leukocyte Esterase,Urine Negative (Negative); PH,Urine 6.0 (5.0-8.5); Protein,Urine Negative (Negative); Specific Gravity, Urine 1.020 (1.005-1.030); Urobilinogen,Urine 0.2 EU/dl (0.2)
[2025-09-07 20:23] LABS: WBC,Urine Occasional #/hpf (0-3)
[2025-09-07 20:24] LABS: Bacteria,Urine Trace /lpf
== END 2025-09-07 23:59 | disposition home or self-care (01) ==
LOC: LAB 08:37
PROVIDERS: PCP Family Medicine; Visit Provider Student in an Organized Health Care Education/Training Program
DX: N18.31 Chronic kidney disease, stage 3a (principal)
CPT/HCPCS: 36415; 80069; 81001; 82043; 82570; 84156; 85027